=== PATIENT | female | born 1985 | race Caucasian/White ===

== ENCOUNTER → 2017-08-14 | Outpatient (REF) | payer MEDICARE, MEDICAID ==
[~2017-08-14] MED LIST: CELE20TA OR; CIPR500T4 OR; No Historical Meds; TRAZ50TA OR
== END ==
LOC: M SFHCWAGY 12:57
PROVIDERS: ATTEND Nurse Practitioner Women's Health
DX: Z11.3 Encounter for screening for infections with a predominantly sexual mode of transmission (principal); N76.0 Acute vaginitis; B96.89 Other specified bacterial agents as the cause of diseases classified elsewhere; Z72.51 High risk heterosexual behavior
CPT/HCPCS: 81002; 87210; 87491; 87591; G0463

== ENCOUNTER 2017-12-24 08:58 | Emergency (ER) | payer MEDICARE, MEDICAID ==
[2017-12-24 10:51] LABS: BASO % 0.4 % (0.0-1.0); EOS % 0.8 % (0.0-3.0); HEMATOCRIT 41.2 % (36.0-47.0); HEMOGLOBIN 13.9 g/dl (12.0-15.5); IMMATURE GRANULOCYTE % 0.2 % (0-3.0); LYMPH # 1.6 10^3/uL (1.5-4.5); LYMPH % 30.4 % (24.0-44.0); MEAN CORPUSCULAR HEMOGLOBIN 28.8 pg (27.0-33.0); MEAN CORPUSCULAR HGB CONC 33.7 g/dl (32.0-36.5); MEAN CORPUSCULAR VOLUME 85.3 fl (80.0-96.0); MONO # 0.4 10^3/uL (0.0-0.8); MONO % 7.3 % (0.0-5.0); NEUTROPHILS # 3.2 10^3/uL (1.8-7.7); NEUTROPHILS % 60.9 % (36.0-66.0); PLATELET COUNT, AUTOMATED 228 10^3/uL (150-450); RED BLOOD COUNT 4.83 10^6/uL (4.00-5.40); RED CELL DISTRIBUTION WIDTH 11.7 % (11.5-14.5); WHITE BLOOD COUNT 5.2 10^3/uL (4.0-10.0)
[2017-12-24] MEDS: IBUPROFEN 600 MG TAB PO (11:09)
[2017-12-24] MEDS: ACETAMINOPHEN TAB 650MG DOSE (2X325MG) PO (11:10)
[2017-12-24 11:12] LABS: ERYTHROCYTE SEDIMENTATION RATE 7 mm/hr (0-20)
[2017-12-24 11:25] LABS: ANION GAP 5 MEQ/L (8-16); BLOOD UREA NITROGEN 9 MG/DL (7-18); CALCIUM LEVEL 8.4 MG/DL (8.5-10.1); CARBON DIOXIDE LEVEL 27 MEQ/L (21-32); CHLORIDE LEVEL 109 MEQ/L (98-107); CREATININE FOR GFR 0.74 MG/DL (0.55-1.30); FREE THYROXINE INDEX 3.7 % (1.3-4.8); GLOMERULAR FILTRATION RATE > 60.0 (>60); GLUCOSE, FASTING 97 MG/DL (70-100); POTASSIUM SERUM 3.9 MEQ/L (3.5-5.1); SODIUM LEVEL 141 MEQ/L (136-145); T UPTAKE 33 % (30-39); THYROXINE (T4) 11.1 UG/DL (4.5-12.0)
== END 2017-12-24 11:49 | disposition home or self-care (01) ==
LOC: M ED 08:58
DX: R51 Headache (principal); R53.83 Other fatigue; Z88.0 Allergy status to penicillin
CPT/HCPCS: 84443

== ENCOUNTER → 2018-03-28 | Outpatient (REF) | payer MEDICARE, MEDICAID ==
[2018-03-28 20:06] LABS: CHLAMYDIA DNA AMPLIFICATION NEGATIVE (NEGATIVE); GC DNA AMPLIFICATION NEGATIVE (NEGATIVE)
[2018-03-29 15:09] LABS: HIV 1&2 SCREEN CENTAUR NEGATIVE (NEGATIVE)
[2018-03-30 15:28] LABS: HPV HYBRID CAPTURE II Negative (Negative)
== END ==
LOC: M SFHCWAGY 13:51
DX: Z01.419 Encounter for gynecological examination (general) (routine) without abnormal findings (principal); Z11.4 Encounter for screening for human immunodeficiency virus [HIV]; Z11.3 Encounter for screening for infections with a predominantly sexual mode of transmission; R39.15 Urgency of urination; Z11.51 Encounter for screening for human papillomavirus (HPV); R31.9 Hematuria, unspecified; N89.8 Other specified noninflammatory disorders of vagina
CPT/HCPCS: 87086

== ENCOUNTER → 2018-04-02 | Outpatient (REF) | payer MEDICARE, MEDICAID ==
[2018-04-02 11:32] LABS: APPEARANCE, URINE HAZY (CLEAR); BACTERIA, URINE AUTO NEGATIVE (NEGATIVE); BILIRUBIN, URINE AUTO NEGATIVE (NEGATIVE); BLOOD, URINE BLOOD 2+ (NEGATIVE); COLOR, URINE YELLOW (YELLOW); GLUCOSE, URINE (UA) AUTO NEGATIVE (NEGATIVE); KETONE, URINE AUTO NEGATIVE (NEGATIVE); LEUKOCYTE ESTERASE, URINE AUTO NEGATIVE (NEGATIVE); MUCUS, URINE SMALL (NEGATIVE); NITRITE, URINE AUTO NEGATIVE (NEGATIVE); PROTEIN, URINE AUTO NEGATIVE (NEGATIVE); RBC, URINE AUTO 1 /HPF (0-3); SPECIFIC GRAVITY URINE AUTO 1.023 (1.002-1.035); SQUAMOUS EPITHELIAL CELL UR AU 3 /HPF (0-6); UROBILINOGEN, URINE AUTO 0.2 mg/dL (0.0-2.0); WBC, URINE AUTO 1 /HPF (0-3)
== END ==
LOC: M SMT 10:59
DX: R31.29 Other microscopic hematuria (principal)
CPT/HCPCS: 81001

== ENCOUNTER → 2018-08-05 | Outpatient (REF) | payer MEDICARE, MEDICAID ==
[2018-08-05 23:31] LABS: CHLAMYDIA DNA AMPLIFICATION NEGATIVE (NEGATIVE); GC DNA AMPLIFICATION NEGATIVE (NEGATIVE)
[2018-08-07 10:55] LABS: HIV 1&2 SCREEN CENTAUR NEGATIVE (NEGATIVE)
[2018-08-07 10:55] LABS: HEPATITIS C VIRUS ABY INDEX 0.1 INDEX (<0.8)
== END ==
LOC: M SFHCWAGY 14:31
DX: Z11.4 Encounter for screening for human immunodeficiency virus [HIV] (principal); Z11.3 Encounter for screening for infections with a predominantly sexual mode of transmission; Z72.51 High risk heterosexual behavior; N89.8 Other specified noninflammatory disorders of vagina
CPT/HCPCS: 86803

== ENCOUNTER → 2018-08-08 | Outpatient (REF) | payer MEDICARE, MEDICAID ==
[2018-08-08 13:25] LABS: CONTROL LINE UCG INT CTR LINE PRESENT; URINE PREG TEST NEGATIVE (NEGATIVE)
[2018-08-08 16:33] LABS: CHLAMYDIA DNA AMPLIFICATION NEGATIVE (NEGATIVE); GC DNA AMPLIFICATION NEGATIVE (NEGATIVE)
== END ==
LOC: M LAB REF 13:12
DX: N89.8 Other specified noninflammatory disorders of vagina (principal); A74.9 Chlamydial infection, unspecified
CPT/HCPCS: 84703

== ENCOUNTER → 2018-09-06 | Outpatient (REF) | payer MEDICARE, MEDICAID ==
[~2018-09-06] MED LIST changes: +CIPR-249 PO; +DIFL150T PO; +PRENTAB40 PO; +TRAM50TA2 PO; +TYLE500T78 PO; +ZOFR4TAB14 PO
[2018-09-06 14:14] LABS: BASO % 0.4 % (0.0-1.0); EOS % 0.6 % (0.0-3.0); HEMATOCRIT 39.5 % (36.0-47.0); HEMOGLOBIN 13.4 g/dl (12.0-15.5); LYMPH # 1.6 10^3/uL (1.5-4.5); LYMPH % 31.5 % (24.0-44.0); MEAN CORPUSCULAR HEMOGLOBIN 28.7 pg (27.0-33.0); MEAN CORPUSCULAR HGB CONC 33.9 g/dl (32.0-36.5); MEAN CORPUSCULAR VOLUME 84.6 fl (80.0-96.0); MONO # 0.4 10^3/uL (0.0-0.8); MONO % 8.6 % (0.0-5.0); NEUTROPHILS % 58.7 % (36.0-66.0); PLATELET COUNT, AUTOMATED 226 10^3/uL (150-450); RED BLOOD COUNT 4.67 10^6/uL (4.00-5.40); WHITE BLOOD COUNT 5.1 10^3/uL (4.0-10.0)
[2018-09-06 14:37] LABS: ALBUMIN 3.7 GM/DL (3.2-5.2); ALT/SGPT 17 U/L (12-78); BILIRUBIN,TOTAL 0.6 MG/DL (0.2-1.0); BLOOD UREA NITROGEN 8 MG/DL (7-18); CALCIUM LEVEL 8.2 MG/DL (8.5-10.1); CARBON DIOXIDE LEVEL 28 MEQ/L (21-32); CHLORIDE LEVEL 105 MEQ/L (98-107); CREATININE FOR GFR 0.77 MG/DL (0.55-1.30); GLOMERULAR FILTRATION RATE > 60.0 (>60); POTASSIUM SERUM 3.8 MEQ/L (3.5-5.1); RHEUMATOID FACTOR QUANT < 10.0 IU/ML (<15.0); SODIUM LEVEL 140 MEQ/L (136-145); TOTAL 25(OH) VITAMIN D 22.6 NG/ML (30.0-100.0); TOTAL PROTEIN 6.9 GM/DL (6.4-8.2)
[2018-09-06 14:43] LABS: ERYTHROCYTE SEDIMENTATION RATE 9 mm/hr (0-20)
[2018-09-06 14:59] LABS: GLUCOSE, FASTING 89 MG/DL (70-100)
[2018-09-07 14:14] LABS: ANTINUCLEAR ANTIBODIES DIRECT Negative (Negative)
== END ==
LOC: M LABNEURO 10:42
PROVIDERS: ATTEND Psychiatry & Neurology Neurology
DX: R51 Headache (principal)

== ENCOUNTER 2018-09-18 20:14 | Emergency (ER) | payer MEDICARE, MEDICAID ==
[~2018-09-18] VITALS: Ht 165.1 cm; Wt 83.6 kg
[~2018-09-18 20:14] MED LIST changes: -CIPR-249 PO; -DIFL150T PO; -TRAM50TA2 PO; -ZOFR4TAB14 PO
[2018-09-18] MEDS ORDERED: KETOROLAC 30 MG/ML VIAL (J1885) IV ONE (21:15)
[2018-09-18] MEDS ORDERED: diphenhydrAMINE INJ 50MG/ML VIAL (J1200) IV ONE (21:15)
[2018-09-18] MEDS ORDERED: NS 1,000 ML IV ONE (21:15)
[2018-09-18] MEDS ORDERED: ONDANSETRON 4MG/2ML VIAL (J2405) IV ONE (21:15)
[2018-09-18 21:34] LABS: BASO % 0.3 % (0.0-1.0); EOS % 0.5 % (0.0-3.0); HEMATOCRIT 36.6 % (36.0-47.0); HEMOGLOBIN 12.5 g/dl (12.0-15.5); LYMPH # 0.6 10^3/uL (1.5-4.5); MEAN CORPUSCULAR HEMOGLOBIN 28.7 pg (27.0-33.0); MEAN CORPUSCULAR HGB CONC 34.2 g/dl (32.0-36.5); MEAN CORPUSCULAR VOLUME 84.1 fl (80.0-96.0); MONO # 0.4 10^3/uL (0.0-0.8); MONO % 10.7 % (0.0-5.0); NEUTROPHILS # 2.7 10^3/uL (1.8-7.7); NEUTROPHILS % 73.5 % (36.0-66.0); PLATELET COUNT, AUTOMATED 164 10^3/uL (150-450); RED BLOOD COUNT 4.35 10^6/uL (4.00-5.40); WHITE BLOOD COUNT 3.7 10^3/uL (4.0-10.0)
[2018-09-18 22:00] LABS: ALBUMIN 3.5 GM/DL (3.2-5.2); ALT/SGPT 15 U/L (12-78); BILIRUBIN,DIRECT 0.1 MG/DL (0.0-0.2); BILIRUBIN,TOTAL 0.6 MG/DL (0.2-1.0); BLOOD UREA NITROGEN 8 MG/DL (7-18); CALCIUM LEVEL 7.7 MG/DL (8.5-10.1); CARBON DIOXIDE LEVEL 26 MEQ/L (21-32); CHLORIDE LEVEL 109 MEQ/L (98-107); CK-MB VALUE MASS < 1.0 NG/ML (<3.6); CPK CREATINE PHOSPHOKINASE 45 U/L (26-192); CREATININE FOR GFR 0.76 MG/DL (0.55-1.30); GLOMERULAR FILTRATION RATE > 60.0 (>60); GLUCOSE, FASTING 104 MG/DL (70-100); LIPASE 108 U/L (73-393); MAGNESIUM LEVEL 1.8 MG/DL (1.8-2.4); MB/CK RELATIVE INDEX 2.22 (< OR =4); POTASSIUM SERUM 3.8 MEQ/L (3.5-5.1); SODIUM LEVEL 142 MEQ/L (136-145); TOTAL PROTEIN 6.4 GM/DL (6.4-8.2); TROPONIN I < 0.02 NG/ML (< 0.10)
[2018-09-18 22:01] LABS: URINE PREG TEST NEGATIVE (NEGATIVE)
[2018-09-18 22:05] LABS: INFLUENZA A AMPLIFICATION NEGATIVE (NEGATIVE); INFLUENZA B AMPLIFICATION NEGATIVE (NEGATIVE)
[2018-09-18] MEDS ORDERED: ISOVUE-370 76% 100ML VIAL (Q9967) As Ordered ONE (22:36)
[2018-09-18] MEDS ORDERED: MORPHINE 4 MG/ML 1ML VIAL/SYRINGE (J2270) IV ONE (22:45)
--- NOTE | 2018-09-19 | REPVR ---
EXAM: CT Abdomen and Pelvis With Contrast EXAM DATE/TIME: 09/18/2018 10:14 PM CLINICAL HISTORY: 33 years old, female; Pain; Abdominal pain; Localized; Lower; Additional info: Lower abd pain TECHNIQUE: Axial computed tomography images of the abdomen and pelvis with intravenous contrast. All CT scans at this facility use at least one of these dose optimization techniques: automated exposure control; mA and/or kV adjustment per patient size (includes targeted exams where dose is matched to clinical indication); or iterative reconstruction. Coronal and sagittal reformatted images were created and reviewed. CONTRAST: 100 ml of iso administered intravenously. COMPARISON: PELVIS NON-OB COMPLETE US 02/13/2013 2:09 PM FINDINGS: Lower thorax: No acute findings. ABDOMEN: Liver: There is a diffuse decrease in hepatic parenchymal density, consistent with fatty infiltration. Gallbladder and bile ducts: Normal. No calcified stones. No ductal dilation. Pancreas: Normal. No ductal dilation. Spleen: Borderline enlarged spleen. Adrenals: Normal. No mass. Kidneys and ureters: Normal. No hydronephrosis. Stomach and bowel: Normal. No obstruction. No mucosal thickening. Appendix: Normal appendix. PELVIS: Bladder: Unremarkable as visualized. Reproductive: Unremarkable as visualized. ABDOMEN and PELVIS: Intraperitoneal space: Free fluid in the cul-de-sac likely physiologic. Other etiologies considering history such as endometriosis or PID should be evaluated clinically. Bones/joints: No acute fracture. No dislocation. Soft tissues: Unremarkable. Vasculature: Normal. No abdominal aortic aneurysm. Lymph nodes: Multiple central mesenteric lymph nodes measure up to 10 mm. Increased haziness of the central mesentery. There are more mesenteric nodes then typically demonstrated in this age group consideration for mesenteric adenitis or panniculitis suggested. IMPRESSION: 1. There is a diffuse decrease in hepatic parenchymal density, consistent with fatty infiltration. 2. Multiple central mesenteric lymph nodes measure up to 10 mm. Increased haziness of the central mesentery. There are more mesenteric nodes then typically demonstrated in this age group consideration for mesenteric adenitis or panniculitis suggested. 3. Free fluid in the cul-de-sac likely physiologic. Considering history other etiologies such as endometriosis or PID should be evaluated clinically. Electronically signed by: Connor Garcia On 09/18/2018 23:59:43 PM
[2018-09-19] MEDS ORDERED: CIPR-249 PO (00:33)
[2018-09-19] MEDS ORDERED: TRAM50TA2 PO (00:33)
[2018-09-19] MEDS ORDERED: DIFL150T PO (00:38)
[2018-09-19] MEDS ORDERED: PERCOCET 5MG/325MG TAB PO ONE (00:45)
[2018-09-19 00:58] VITALS: BP 120/58
[2018-09-19] MEDS ORDERED: ZOFR4TAB14 PO (00:58)
[2018-09-19] MEDS ORDERED: CIPROFLOXACIN 500 MG TAB PO ONE (01:00)
--- NOTE | 2018-09-19 13:11 | ECGEPIP ---
Stationary ECG Study [facility] - ED Test Date: 2018-09-18 Pat Name: MANDI MENDOSA Department: Room: - Gender: F Vein Access Technician: tien : 1985 Requested By: CÉSAR BARROW Order Number: [id number] Reading MD: Mayank Ferreira Measurements Intervals [place] Rate: 95 P: 39 MT: 158 QRS: 67 QRSD: 81 T: 54 QT: 347 QTc: 438 Interpretive Statements SINUS RHYTHM BENIGN EARLY REPOLARIZATION SIMILAR TO 05/03/13 Electronically Signed On 09-19-2018 13:10:43 EST by Mayank Ferreira
== END 2018-09-19 01:02 | disposition home or self-care (01) ==
LOC: M ED 20:14
DX: I88.0 Nonspecific mesenteric lymphadenitis (principal); N39.0 Urinary tract infection, site not specified; R01.1 Cardiac murmur, unspecified; Z82.49 Family history of ischemic heart disease and other diseases of the circulatory system; Z88.0 Allergy status to penicillin
CPT/HCPCS: 74177; 80048; 80076; 81001; 82550; 82553; 83690; 83735; 84484; 84703; 85025; 87086; 87502; 93005; 96361; 96374; 96375; 99284; J1200; J1885; J2270; J2405; Q9967

== ENCOUNTER → 2018-10-22 | Outpatient (REF) | payer MEDICARE, MEDICAID ==
[~2018-10-22] MED LIST changes: +CIPR-249 PO; +DIFL150T PO; +TRAM50TA2 PO; +ZOFR4TAB14 PO
[2018-10-22 18:02] LABS: AMORPHOUS SEDIMENT LARGE (NEGATIVE); APPEARANCE, URINE TURBID (CLEAR); BACTERIA, URINE AUTO NEGATIVE (NEGATIVE); BILIRUBIN, URINE AUTO NEGATIVE (NEGATIVE); BLOOD, URINE BLOOD 2+ (NEGATIVE); COLOR, URINE YELLOW (YELLOW); GLUCOSE, URINE (UA) AUTO NEGATIVE (NEGATIVE); KETONE, URINE AUTO NEGATIVE (NEGATIVE); LEUKOCYTE ESTERASE, URINE AUTO NEGATIVE (NEGATIVE); NITRITE, URINE AUTO NEGATIVE (NEGATIVE); PROTEIN, URINE AUTO NEGATIVE (NEGATIVE); RBC, URINE AUTO 6 /HPF (0-3); SPECIFIC GRAVITY URINE AUTO 1.028 (1.002-1.035); SQUAMOUS EPITHELIAL CELL UR AU 0 /HPF (0-6); UROBILINOGEN, URINE AUTO 0.2 mg/dL (0.0-2.0); WBC, URINE AUTO 5 /HPF (0-3)
[2018-10-22 18:37] LABS: ALBUMIN 3.9 GM/DL (3.2-5.2); ALT/SGPT 19 U/L (12-78); BILIRUBIN,TOTAL 0.5 MG/DL (0.2-1.0); BLOOD UREA NITROGEN 10 MG/DL (7-18); CALCIUM LEVEL 8.4 MG/DL (8.5-10.1); CARBON DIOXIDE LEVEL 25 MEQ/L (21-32); CHLORIDE LEVEL 106 MEQ/L (98-107); CREATININE FOR GFR 0.73 MG/DL (0.55-1.30); GLOMERULAR FILTRATION RATE > 60.0 (>60); GLUCOSE, FASTING 93 MG/DL (70-100); POTASSIUM SERUM 4.1 MEQ/L (3.5-5.1); SODIUM LEVEL 138 MEQ/L (136-145); TOTAL PROTEIN 6.9 GM/DL (6.4-8.2)
[2018-10-22 18:39] LABS: TOTAL 25(OH) VITAMIN D 9.4 NG/ML (30.0-100.0)
[2018-10-22 18:42] LABS: BASO % 0.6 % (0.0-1.0); EOS # 0.1 10^3/uL (0.0-0.50); HEMOGLOBIN 13.1 g/dl (12.0-15.5); LYMPH # 1.7 10^3/uL (1.5-4.5); LYMPH % 34.9 % (24.0-44.0); MEAN CORPUSCULAR HEMOGLOBIN 28.4 pg (27.0-33.0); MEAN CORPUSCULAR HGB CONC 33.6 g/dl (32.0-36.5); MEAN CORPUSCULAR VOLUME 84.6 fl (80.0-96.0); MONO # 0.4 10^3/uL (0.0-0.8); MONO % 7.1 % (0.0-5.0); NEUTROPHILS # 2.8 10^3/uL (1.8-7.7); NEUTROPHILS % 56.2 % (36.0-66.0); PLATELET COUNT, AUTOMATED 252 10^3/uL (150-450); RED BLOOD COUNT 4.61 10^6/uL (4.00-5.40)
== END ==
LOC: M LAB REF 16:34
PROVIDERS: ATTEND Family Medicine Addiction Medicine
DX: E55.9 Vitamin D deficiency, unspecified (principal); E83.51 Hypocalcemia; R00.2 Palpitations; F41.1 Generalized anxiety disorder

== ENCOUNTER → 2018-10-25 | Outpatient (REF) | payer MEDICARE, MEDICAID ==
[2018-10-25 13:18] LABS: APPEARANCE, URINE CLEAR (CLEAR); BACTERIA, URINE AUTO NEGATIVE (NEGATIVE); BILIRUBIN, URINE AUTO NEGATIVE (NEGATIVE); BLOOD, URINE BLOOD 1+ (NEGATIVE); COLOR, URINE YELLOW (YELLOW); GLUCOSE, URINE (UA) AUTO NEGATIVE (NEGATIVE); KETONE, URINE AUTO NEGATIVE (NEGATIVE); LEUKOCYTE ESTERASE, URINE AUTO NEGATIVE (NEGATIVE); MUCUS, URINE SMALL (NEGATIVE); NITRITE, URINE AUTO NEGATIVE (NEGATIVE); PROTEIN, URINE AUTO NEGATIVE (NEGATIVE); RBC, URINE AUTO 2 /HPF (0-3); SPECIFIC GRAVITY URINE AUTO 1.019 (1.002-1.035); SQUAMOUS EPITHELIAL CELL UR AU 2 /HPF (0-6); UROBILINOGEN, URINE AUTO 0.2 mg/dL (0.0-2.0); WBC, URINE AUTO 1 /HPF (0-3)
== END ==
LOC: M SMT 13:06
PROVIDERS: ATTEND Nurse Practitioner Women's Health
DX: R31.29 Other microscopic hematuria (principal)
CPT/HCPCS: 81001; 87086; 88108; G0463

== ENCOUNTER → 2018-10-29 | Outpatient (REF) | payer MEDICARE, MEDICAID ==
[2018-10-30 04:44] LABS: CHLAMYDIA DNA AMPLIFICATION NEGATIVE (NEGATIVE); GC DNA AMPLIFICATION NEGATIVE (NEGATIVE)
== END ==
LOC: M SFHCWAGY 17:37
PROVIDERS: ATTEND Nurse Practitioner Family
DX: Z11.3 Encounter for screening for infections with a predominantly sexual mode of transmission (principal); R10.2 Pelvic and perineal pain; N89.8 Other specified noninflammatory disorders of vagina
CPT/HCPCS: 87210; 87491; 87591; G0463

== ENCOUNTER → 2018-11-06 | Outpatient (REF) | payer MEDICARE, MEDICAID | LOC: M LAB REF 16:17 | PROVIDERS: ATTEND Physician Assistant | DX: J02.9 Acute pharyngitis, unspecified (principal) ==

== ENCOUNTER → 2018-11-26 | Outpatient (CLI) | payer MEDICARE, MEDICAID ==
--- NOTE | 2018-11-26 13:41 | REP ---
PELVIC SONOGRAPHY: HISTORY: Pelvic pain. FINDINGS: Transabdominal and transvaginal scanning are performed. Uterine dimensions are 8.6 x 4.7 x 6.4 cm. Endometrial echo is 0.9 cm thick. No focal uterine mass is seen. Nabothian cysts are seen in the cervix. No free fluid is seen. The right ovary is normal measuring 3.4 x 2.0 x 3.4 cm. Its Doppler flow is normal with resistive index to the right ovary is 0.40. The left ovary measures 3.2 x 2.7 x 3.1 cm. Its Doppler flow is normal, resistive index 0.38. There is a 1.7 x 1.8 x 1.3 cm left ovarian follicle. IMPRESSION: No significant finding.
== END ==
LOC: M WHC 11:16
PROVIDERS: ATTEND Nurse Practitioner Family
DX: R10.2 Pelvic and perineal pain (principal)

== ENCOUNTER → 2018-11-29 | Outpatient (CLI) | payer MEDICARE, MEDICAID ==
[2018-11-29 13:09] LABS: HEMATOCRIT 39.4 % (36.0-47.0); HEMOGLOBIN 13.3 g/dl (12.0-15.5); MEAN CORPUSCULAR HEMOGLOBIN 28.9 pg (27.0-33.0); MEAN CORPUSCULAR HGB CONC 33.8 g/dl (32.0-36.5); MEAN CORPUSCULAR VOLUME 85.7 fl (80.0-96.0); PLATELET COUNT, AUTOMATED 211 10^3/uL (150-450); WHITE BLOOD COUNT 5.1 10^3/uL (4.0-10.0)
[2018-11-29 14:12] LABS: BLOOD UREA NITROGEN 8 MG/DL (7-18); CALCIUM LEVEL 8.4 MG/DL (8.5-10.1); CARBON DIOXIDE LEVEL 25 MEQ/L (21-32); CHLORIDE LEVEL 107 MEQ/L (98-107); CHOLESTEROL LEVEL 184 MG/DL (<200); CHOLESTEROL RISK RATIO 4.279 (<5); CREATININE FOR GFR 0.72 MG/DL (0.55-1.30); GLOMERULAR FILTRATION RATE > 60.0 (>60); GLUCOSE, FASTING 101 MG/DL (70-100); HDL CHOLESTEROL 43 MG/DL (>40); LDL CHOLESTEROL 121 MG/DL (<100); NON-HDL-C 141 MG/DL; POTASSIUM SERUM 4.4 MEQ/L (3.5-5.1); SODIUM LEVEL 140 MEQ/L (136-145); TRIGLYCERIDES LEVEL 102 MG/DL (<150)
== END ==
LOC: M WUC 08:24
PROVIDERS: ATTEND Internal Medicine Cardiovascular Disease
DX: R07.89 Other chest pain (principal)

== ENCOUNTER 2019-01-08 10:00 | Emergency (ER) | payer MEDICARE, MEDICAID ==
[~2019-01-08] VITALS: Ht 165.1 cm; Wt 79.5 kg
[2019-01-08] MEDS ORDERED: ONDANSETRON 4MG/2ML VIAL (J2405) IV ONE (11:00)
[2019-01-08] MEDS ORDERED: NS 1,000 ML IV ONE (11:00)
[2019-01-08] MEDS ORDERED: KETOROLAC 30 MG/ML VIAL (J1885) IV ONE (11:00)
[2019-01-08] MEDS ORDERED: GASTROGRAFIN SOLUTION 30ML (Q9963) As Ordered ONE (11:06)
[2019-01-08 11:18] LABS: BASO % 0.2 % (0.0-1.0); EOS % 0.2 % (0.0-3.0); HEMATOCRIT 44.6 % (36.0-47.0); HEMOGLOBIN 14.9 g/dl (12.0-15.5); LYMPH # 0.5 10^3/uL (1.5-4.5); LYMPH % 5.6 % (24.0-44.0); MEAN CORPUSCULAR HEMOGLOBIN 28.5 pg (27.0-33.0); MEAN CORPUSCULAR HGB CONC 33.4 g/dl (32.0-36.5); MEAN CORPUSCULAR VOLUME 85.4 fl (80.0-96.0); MONO # 0.6 10^3/uL (0.0-0.8); MONO % 6.5 % (0.0-5.0); NEUTROPHILS # 8.2 10^3/uL (1.8-7.7); NEUTROPHILS % 87.1 % (36.0-66.0); PLATELET COUNT, AUTOMATED 192 10^3/uL (150-450); RED BLOOD COUNT 5.22 10^6/uL (4.00-5.40); WHITE BLOOD COUNT 9.5 10^3/uL (4.0-10.0)
[2019-01-08] MEDS: GASTROGRAFIN SOLUTION 30ML PO SCH ×2 (11:20→11:49)
[2019-01-08 11:50] LABS: ALBUMIN 4.2 GM/DL (3.2-5.2); ALT/SGPT 20 U/L (12-78); BILIRUBIN,TOTAL 0.7 MG/DL (0.2-1.0); BLOOD UREA NITROGEN 13 MG/DL (7-18); CALCIUM LEVEL 8.4 MG/DL (8.5-10.1); CARBON DIOXIDE LEVEL 25 MEQ/L (21-32); CHLORIDE LEVEL 107 MEQ/L (98-107); CREATININE FOR GFR 0.79 MG/DL (0.55-1.30); GLOMERULAR FILTRATION RATE > 60.0 (>60); GLUCOSE, FASTING 104 MG/DL (70-100); HCG, SERUM QUANTITATIVE < 1.0 MIU/ML; LIPASE 116 U/L (73-393); POTASSIUM SERUM 3.7 MEQ/L (3.5-5.1); SODIUM LEVEL 137 MEQ/L (136-145); TOTAL PROTEIN 7.7 GM/DL (6.4-8.2)
[2019-01-08] MEDS ORDERED: ISOVUE-370 76% 100ML VIAL (Q9967) As Ordered ONE (12:26)
[2019-01-08] MEDS ORDERED: GI COCKTAIL 50ML BTL(HYOSCYAMINE/MAALOX/LIDOCAINE VISCOUS)(1:3:1) PO ONE (13:00)
[2019-01-08] MEDS ORDERED: DICYCLOMINE 10 MG CAP PO ONE (13:15)
--- NOTE | 2019-01-08 13:16 | REP ---
CT of the abdomen and pelvis with IV and oral contrast: Comparison is 09/18/2018. The visualized lung lei are unremarkable. The hepatic parenchyma, gallbladder, pancreas, spleen, adrenals, kidneys and abdominal aorta are unremarkable. There are normal size mesenteric nodes, not significantly changed. The mesenteric central haziness identified previously is no longer present. There is no bowel distension or obstruction. There is wall thickening of the distal transverse colon, descending colon and sigmoid colon as an interval change. This is compatible with colitis in the appropriate clinical setting. Pelvis: The appendix is unremarkable. The uterus and adnexa are unremarkable except for an involuting left ovarian follicle. There is a trace of ascites. The bladder is unremarkable. Impression: Wall thickening of the distal transverse colon, descending colon and sigmoid colon compatible with colitis in the appropriate clinical setting. Involuting left adnexal follicle. Otherwise, negative CT of the abdomen and pelvis. Electronically Signed by Musa Styles MD 01/08/2019 01:07 P
[2019-01-08] MEDS ORDERED: REGL10TA6 PO (13:23)
[2019-01-08] MEDS ORDERED: FLAG500T PO (13:23)
[2019-01-08] MEDS ORDERED: CIPR-249 PO (13:23)
[2019-01-08 13:33] VITALS: BP 103/58
[2019-01-08] MEDS ORDERED: KETO10TAB PO (13:34)
== END 2019-01-08 13:41 | disposition home or self-care (01) ==
LOC: M ED 10:00
DX: K52.9 Noninfective gastroenteritis and colitis, unspecified (principal); N83.02 Follicular cyst of left ovary; R10.30 Lower abdominal pain, unspecified; Z87.891 Personal history of nicotine dependence; Z88.0 Allergy status to penicillin
CPT/HCPCS: 36415; 74177; 80053; 81001; 83690; 84702; 85025; 96361; 96374; 96375; 99284; J1885; J2405; Q9967

== ENCOUNTER → 2019-03-04 | Outpatient (REF) | payer MEDICARE, MEDICAID ==
[~2019-03-04] MED LIST changes: +FLAG500T PO; +KETO10TAB PO; +REGL10TA6 PO
[2019-03-04 15:13] LABS: CHLAMYDIA DNA AMPLIFICATION NEGATIVE (NEGATIVE); GC DNA AMPLIFICATION NEGATIVE (NEGATIVE)
== END ==
LOC: M SFHCWAGY 13:05
PROVIDERS: ATTEND Nurse Practitioner Women's Health
DX: N93.0 Postcoital and contact bleeding (principal); R35.0 Frequency of micturition; N89.8 Other specified noninflammatory disorders of vagina
CPT/HCPCS: 81002; 87661; G0463

== ENCOUNTER → 2019-04-11 | Outpatient (CLI) | payer MEDICARE, MEDICAID ==
--- NOTE | 2019-04-22 01:36 | ECWPNPC ---
PATIENT NAME: MANDI MENDOSA : 1985 GENDER: FEMALE VISIT DATE: 04/11/2019 DISCHARGE DATE: 04/11/19 1614 VISIT LOCKED DATE TIME: PHYSICIAN: HARSHAL KHAN MD RESOURCE: HARSHAL KHAN MD REASON FOR APPOINTMENT 1. NECK PAIN REFER FROM [facility] HISTORY OF PRESENT ILLNESS PAIN SCREENING: PATIENT HAS A COMPLAINT OF ACUTE OR CHRONIC PAIN :YES 33 YEAR OLD FEMALE PATIENT WITH A HISTORY OF CHRONIC NECK PAIN. THE PATIENT DESCRIBES THE PAIN ACHING, SHARP, AND DAILY WITH A PAIN SCORE OF 7-10/10 DEPENDING ON PHYSICAL ACTIVITY. THE PATIENT STATES THE PAIN BEGINS IN HER NECK AND RADIATES UP TOWARDS HER HEAD. THE PATIENT SAYS SHE HAS BEEN SUFFERING FROM THIS PAIN FOR MANY YEARS. THE PATIENT ALSO HAS LOW BACK PAIN, BUT SAYS THE NECK PAIN IS WORSE. THE PATIENT MENTIONS SHE ALSO EXPERIENCES PAIN RADIATING DOWN HER ARM DUE TO HEART ISSUES AND SHE IS BEING SEEN BY A UPHOLSTERER HELPER. THE PATIENT SAYS SHE HAS USED TORADOL IN THE PAST TO AID IN PAIN RELIEF, HOWEVER SHE DEVELOPED STOMACH ISSUES DUE TO LONG-TERM USAGE AND HAD TO STOP TAKING THEM. PATIENT DENIES UNEXPLAINABLE WEIGHT LOSS, FEVER, CHILLS, NEW CHANGES ON HER URINARY OR BOWEL CONTROL. FALL RISK SCREENING: SCREENING :NO FALLS REPORTED IN THE LAST YEAR CURRENT MEDICATIONS TAKING TYLENOL 325 MG TABLET 1 TABLET NEEDED ORALLY EVERY 4 HRS NOT-TAKING HYDROXYZINE HCL 25 MG TABLET 1 TABLET NEEDED ORALLY EVERY 8 HRS NOT-TAKING VITAMIN D 1000 UNIT TABLET 1 TABLET ORALLY TWICE DAILY NOT-TAKING CLOMID 50 MG TABLET 1 TABLET ORALLY ONCE A DAY (DAY3-7) MEDICATION LIST REVIEWED AND RECONCILED WITH THE PATIENT PAST MEDICAL HISTORY MENORRHAGIA FOLLOWING [facility] HISTORY OF ALCOHOL ABUSE TOP (OCT 2010) POOR HISTORIAN MOLLUSCUM CONTAGIOSUM IRREG MENSES AFTER STOPPING DEPO 04/04-08/05 ANXIETY HX FREQ BV AND CANDIDIASIS VUL/VAG HIGH RISK SEXUAL BEHAVIOR CHRONIC NECK PAIN ALLERGIES AMOXICILLIN: HIVES - ALLERGY BACTRIM DS: VULVAR PRURITIS - SIDE EFFECTS SURGICAL HISTORY D&C FOR TOP 11/2010 FAMILY HISTORY FATHER: 46 YRS, SUICIDE BY HANGING MOTHER: ALIVE 48 YRS, CERVICAL CANCER, VON WILLEBRAND SIBLINGS: ALIVE, THREE SISTERS: 20, 22, 26, ALL NO KNOWN MEDICAL PROBLEMS. ONE BROTHER: 16, FEEDING TUBE A . ANOTHER BROTHER, TERESITA CHAMBERS SON(S): ALIVE 8,3 YRS PATERNAL GRAND FATHER: , UNKNOWN, DIAGNOSED WITH CANCER PATERNAL GRAND MOTHER: , CANCER MATERNAL GRAND FATHER: ALIVE 68 YRS, DIABETES MELLITUS MATERNAL GRAND MOTHER: ALIVE 67 YRS, DIABETES MELLITUS 1 BROTHER(S) , 3 SISTER(S) . 3 SON(S) , 1 DAUGHTER(S) - HEALTHY. DENIES BREAST, COLON OR OVARIAN CANCERS. SOCIAL HISTORY GENERAL: TOBACCO USE ARE YOU A:FORMER SMOKER HOW LONG HAS IT BEEN SINCE YOU LAST SMOKED?1-5 YEARS QUITE 2 1/2 YRS AGO HIV / HEP-C SCREENING HIV TEST OFFERED TO PATIENT:YES DATE OFFERED:08/05/2018 TEST ACCEPTED:YES BROCHURE PROVIDED TO PATIENTYES OTHERS AT HOME: CHILDREN.FIANCE. HOUSING: RENTS APARTMENT. EDUCATION HIGH SCHOOL DEGREE. DIET: REGULAR. LANGUAGE CONGOLESE. DOMESTIC VIOLENCE DENIES SEXUAL, PHYSICAL OR EMOTIONAL ABUSE, 01/26/14 HITS=N/A, NO PARTNER BUT FORM WAS NOT COMPLETED BY PT. BMI CARE GOAL FOLLOW-UP ABOVE NORMAL BMI FOLLOW-UPDIETARY NEEDS EDUCATION, GIVING ENCOURAGEMENT TO EXERCISE, WEIGHT MONITORING RECREATIONAL DRUG USE DENIES. EXERCISE: NO REGULAR EXERCISE. LEARNING BARRIERS / SPECIAL NEEDS CHANGE FROM LAST VISIT?NO BARRIERS TO LEARNING?NO HEARING IMPAIRED?NO VISION IMPAIRED?NO COGNITIVELY IMPAIRED?NO READINESS TO LEARN?YES LEARNING PREFERENCES?NO LEARNING CAPABILITIES PRESENT?YES EMOTIONAL BARRIERS?NO SPECIAL DEVICES?NO ANATOMY TEACHER NEEDED?NO PAIN CLINIC PFS, CLERGY, PUBLIC HEALTH REFERRALS HAS THE PATIENT BEEN EDUCATED REGARDING HIS/HER PLAN OF CARE?YES HAS THE PATIENT BEEN EDUCATED REGARDING PAIN, THE RISK FOR PAIN, THE IMPORTANCE OF EFFECTIVE PAIN MANAGEMENT, AND THE PAIN ASSESSMENT PROCESS?YES LATEX QUESTIONNAIRE LATEX ALLERGY : HAVE YOU EVER DEVELOPED ANY TYPE OF REACTION AFTER HANDLING LATEX PRODUCTS SUCH RUBBER GLOVES, CONDOMS, DIAPHRAGMS, BALLOONS, SOCKS, OR UNDERWEAR?NO LATEX ALLERGY : HAVE YOU EVER DEVELOPED ANY TYPE OF REACTION DURING OR AFTER DENTAL APPOINTMENT, VAGINAL/RECTAL EXAMINATION, SURGICAL PROCEDURE, OR ANY OTHER EXPOSURE?NO LATEX RISK : HAVE YOU EVER HAD ANY DIFFICULTY BREATHING OR HIVES AFTER EATING OR HANDLING ANY FRUITS, OR VEGETABLES; SUCH KIWI, BANANAS, STONE FRUITS, OR CHESTNUTSNO LATEX RISK : DO YOU HAVE A PREVIOUS PERSONAL HISTORY OF MORE THAN NINE SURGERIES, SPINA BIFIDA, OR REPEATED CATHERIZATIONS? NO LATEX RISK : ARE YOU FREQUENTLY EXPOSED TO LATEX PRODUCTS IN YOUR OCCUPATION?NO DATE ASKED : 03/04/2019 CAFFEINE CAFFEINE USE?YES HOW OFTEN AND HOW MUCH? SODA DAILY - DECAF COFFEE ADVANCE DIRECTIVE ADVANCE DIRECTIVE DISCUSSED WITH PATIENT:YES PT DOES NOT HAVE HCP AND DECLINES INFO AT THIS TIME. 04/11/19 BV RESTORATIONISM DENOMINATIONAL. MARITAL STATUS: SINGLE. OCCUPATION: UNEMPLOYED. SEXUAL HX HAD SEX IN THE LAST 12 MONTHS (VAGINAL, ORAL, OR ANAL)?YES WITHMEN ONLY HAVE YOU EVER HAD AN STD?NO LMP:07/13/18 USE PROTECTION?NO PREVENTION STRATEGIES DISCUSSED:CONDOMS REVIEWED WITH PT 04/11/19 1439 BV. HOSPITALIZATION/MAJOR DIAGNOSTIC PROCEDURE NO HOSPITALIZATION HISTORY. REVIEW OF SYSTEMS REVIEWED BY: PROVIDER: HARSHAL KHAN MD . CONSTITUTIONAL: ANY CHANGE IN YOUR MEDICAL CONDITION? NO . CHILLS NO . FEVER NO . INFECTION: DO YOU HAVE NEW INFECTIONS? NO . DO YOU HAVE HISTORY OF MRSA? NO . MUSCULOSKELETAL: ANY NEW PATTERNS OF PAIN OR NUMBNESS? NO . SYTEMIC LUPUS NO . GASTROENTEROLOGY: ANY NEW CHANGE IN BOWEL CONTROL? NO . BARRETTS ESOPHAGUS NO . CIRRHOSIS NO . HEPATITIS NO . LIVER FAILURE NO . ACID REFLUX NO . UNEXPLAINED WEIGHT LOSS NO . GENITOURINARY: ANY NEW CHANGE IN BLADDER CONTROL? NO . IS THERE A CHANCE YOU COULD BE ? NO . HEMATOLOGY/LYMPH: DO YOU TAKE ANY BLOOD THINNERS? (FOR EXAMPLE- COUMADIN, PLAVIX, AGGRENOX, PLATEL, PRADAXA, OR XARELTO) NO . WHEN WAS YOUR LAST DOSE? DATE: TIME: . LOW PLATELET COUNT NO . SICKLE CELL DISEASE NO . VON WILLIEBRANDS NO . FACTOR V LEIDEN NO . THALLASEMIA NO . ANEMIA NO . EASY BRUISING NO . NEUROLOGY: HAVE YOU FALLEN IN THE PAST 12 MONTHS? NO . ANY NEW EXTREMITY NUMBNESS OR WEAKNESS? YES, PT REPORTS TINGLING DOWN RIGHT ARM THAT STARTED ABOUT A WEEK AGO. . HEAD INJURY NO . DEMENTIA NO . CEREBRAL PALSY NO . MULTIPLE SCLEROSIS NO . DIZZINESS NO . HEADACHE PT STATES SHE GETS FREQUENT HEADACHES >3 WEEK. USUALLY PROGRESS TO MIGRAINES. TREATS WITH TYLENOL WITH LITTLE RELIEF . STROKES NO . VERTIGO NO . CARDIOLOGY: DO YOU HAVE A PACEMAKER OR DEFIBRILLATOR? NO . ANGINA NO . HEART ATTACK NO . HEART SURGERY NO . CONGESTIVE HEART FAILURE/FLUID OVERLOAD NO . CHEST PAIN FOLLOWS WITH CARDIOLOGY REGARDING INTERMITTENT CHEST PAIN . HIGH BLOOD PRESSURE NO . IRREGULAR HEART BEAT DIAGNOSED WITH HEART MURMUR CHILD . RESPIRATORY: HAVE YOU BEEN SICK IN THE PAST WEEK? NO . FEVER NO . FLU LIKE SYMPTOMS? NO . CPAP NO . BYPAP NO . ASTHMA YES, CHILDHOOD ASTHMA . EMPHYSEMA NO . CHRONIC LUNG DISEASES NO . SHORTNESS OF BREATH ON EXERTION NO . COUGH NO . SNORING NO . INTEGUMENTARY: DO YOU HAVE ANY RASHES OR OPEN SORES? NO . ALLERGIC/IMMUNO: ARE YOU ALLERGIC TO IV DYE? NO . ANY NEW ALLERGIES? NO . PSYCHIATRIC: DO YOU HAVE THOUGHTS OF HURTING YOURSELF OR SOMEONE ELSE? NO . ARE YOU ABUSED, NEGLECTED, OR IN AN UNSAFE ENVIRONMENT? NO . ENDOCRINOLOGY: ARE YOU DIABETIC? NO . THYROID DISORDER NO . OTHER: DO YOU NEED ANY PRESCRIPTIONS? NO . IF YES, PLEASE LIST: ____ . ANY NEW PROBLEMS WITH YOUR MEDICATIONS? NO . WHEN DID YOU LAST EAT? ____ . WHEN DID YOU LAST DRINK? ____ . WHAT DID YOU LAST DRINK? ____ . NAME OF PERSON DRIVING YOU HOME? ____ . DO YOU HAVE ANY OTHER QUESTIONS OR CONCERNS NO . VITAL SIGNS WT 179 LBS, HT 65 IN, BMI 29.78 INDEX, BP 115/54 MM HG, HR 85 /MIN, RR 18 /MIN, TEMP 98.3 F, OXYGEN SAT % 99%, NA INITIALS SC 14:12, REVIEWED BY: BV. EXAMINATION GENERAL EXAMINATION: PATIENT IS ALERT O X 3 AND COOPERATIVE. LUNGS CLEAR, TO AUSCULTATION. HEART: NO MURMURS OR GALLOPS; FACIAL CRANIAL NERVES ARE GROSSLY NORMAL. GOOD SYMMETRY OF FACIAL MUSCLE MOVEMENT. NORMAL VISUAL ROWELL. TENDERNESS IN THE CERVICAL AREA. PAIN INCREASES OVER THE CERVICAL FACET JOINTS WITH EXTENSION AND LATERAL ROTATION OF THE NECK. MRI OF THE CERVICAL SPINE DONE ON 12/03/2017 SHOWS FACET ARTHROPATHY CHANGES AT C3-C4 AND C5-C6 LEVELS. ASSESSMENTS SPONDYLOSIS OF CERVICAL REGION WITHOUT MYELOPATHY OR RADICULOPATHY - M47.812 (PRIMARY) NECK PAIN - M54.2 MYALGIA, OTHER SITE - M79.18 TREATMENT SPONDYLOSIS OF CERVICAL REGION WITHOUT MYELOPATHY OR RADICULOPATHY CLINICAL NOTES: WE DISCUSSED SEVERAL ISSUES WITH MS. MENDOSA'S PAIN MANAGEMENT CASE. I DISCUSSED SEVERAL INJECTION THERAPY OPTIONS, SUCH NECK TRIGGER POINT INJECTIONS AND CERVICAL FACET BLOCKS. HOWEVER, THE PATIENT WOULD PREFER LESS AGGRESSIVE MANAGEMENT FOR NOW. THE PATIENT SAID TORADOL HELPED HER IN THE PAST AND WOULD LIKE TO TRY THIS MEDICATION AGAIN. I EXPLAINED TO THE PATIENT THE RISKS ALTERNATIVES AND BENEFITS ASSOCIATED WITH THE USE OF NSAID'S. THE PATIENT UNDERSTOOD THAT THE USE OF NSAID'S MAY BE ASSOCIATED WITH THE DEVELOPMENT OF GASTRIC IRRITATION AND ULCERS, WITH THE DEVELOPMENT OF KIDNEY PROBLEMS AND WITH THE POSSIBILITY OF DEVELOPING CARDIAC EVENTS SUCH STOKE OR CARDIAC DISEASES. THE PATIENT AGREES ON USING THE PRESCRIBED NSAID. THE PATIENT WILL START ON TORADOL 10 MG, 5 TABLETS FOR THE MONTH NEEDED TO HELP WITH HER PAIN. THE PATIENT IS AWARE THAT WE WILL NOT PRESCRIBE MORE THAN 5 TABS PER MONTH OF THIS MEDICATION. I WILL ALSO START THE PATIENT ON MOBIC 15 MG 10 TABLETS FOR THE MONTH TO BE USED NEEDED FOR PAIN. THE PATIENT WILL NOT USE TORADOL AND MOBIC THE SAME DAYS. THE PATIENT WILL FOLLOW UP WITH THE NURSE PRACTITIONER IN 4 WEEKS. INSTRUCTIONS WERE GIVEN, QUESTIONS WERE ANSWERED, PATIENT REPORTS UNDERSTANDING AND AGREES WITH THE PLAN. I, LUIS PEÑA, DOCUMENTED THE ABOVE INFORMATION ACTING A SCRIBE FOR DR. KHAN. I HAVE REVIEWED THE ABOVE DOCUMENT, WRITTEN BY LUIS ROMO AND I VERIFY THAT IT IS ACCURATE. DEAR NOÉ COYLE, Valery.Paige: THANK YOU FOR YOUR KIND REFERRAL OF MANDI MENDOSA. IF YOU WANT TO DISCUSS HER CASE WITH ME PLEASE CALL ME AT THE PAIN CENTER AT [phone]. SINCERELY, HARSHAL KHAN MD PAIN MEDICINE . OTHERS START KETOROLAC TROMETHAMINE TABLET, 10 MG, 1 TABLET WITH FOOD OR MILK NEEDED, ORALLY FOR NECK PAIN, DAILY, 30 DAYS, 5, REFILLS 0 START MOBIC TABLET, 15 MG, 1 TABLET, ORALLY WITH FOOD, ONCE A DAY FOR PAIN MDD1, 30 DAY(S), 10, REFILLS 0 PREVENTIVE MEDICINE PAIN CLINIC TEACHING: MEDICATIONS TORADOL AND MOBIC HANDOUTS PRINTED, REVIEWED AND GIVEN TO PT. EM. PROCEDURE CODES FA211 ESTABILISHED PATIENT [facility] FACILITY CHARGE G8427 CURRENT MEDS W/DOSAGES DOCUMENTED G8730 PAIN ASSESS POS TOOL F/U PLAN DOC DISPOSITION & COMMUNICATION FOLLOW UP 4 WEEKS (REASON: MEDS, F/U WITH LATIN PROFESSOR) ELECTRONICALLY SIGNED BY HARSHAL KHAN MD, MD ON 04/21/2019 AT 04:17 PM EDT DISCLAIMER : THIS IS A VISIT SUMMARY EXTRACTED FROM THE [employer] CHART. IT IS NOT A COPY OF THE [employer] PROGRESS NOTE. PROSPERD
== END ==
LOC: M PAIN 14:00
PROVIDERS: ATTEND Anesthesiology
DX: M47.812 Spondylosis without myelopathy or radiculopathy, cervical region (principal); M54.2 Cervicalgia; M79.18 Myalgia, other site; F41.9 Anxiety disorder, unspecified; B08.1 Molluscum contagiosum; N92.6 Irregular menstruation, unspecified; Z79.899 Other long term (current) drug therapy; Z87.891 Personal history of nicotine dependence; Z88.0 Allergy status to penicillin; Z88.2 Allergy status to sulfonamides

== ENCOUNTER → 2019-04-15 | Outpatient (REF) | payer MEDICARE, MEDICAID ==
[2019-04-15 16:16] LABS: APPEARANCE, URINE CLEAR (CLEAR); BACTERIA, URINE AUTO NEGATIVE (NEGATIVE); BILIRUBIN, URINE AUTO NEGATIVE (NEGATIVE); BLOOD, URINE BLOOD 1+ (NEGATIVE); COLOR, URINE YELLOW (YELLOW); GLUCOSE, URINE (UA) AUTO NEGATIVE (NEGATIVE); KETONE, URINE AUTO NEGATIVE (NEGATIVE); LEUKOCYTE ESTERASE, URINE AUTO 1+ (NEGATIVE); MUCUS, URINE SMALL (NEGATIVE); NITRITE, URINE AUTO NEGATIVE (NEGATIVE); PROTEIN, URINE AUTO NEGATIVE (NEGATIVE); RBC, URINE AUTO 5 /HPF (0-3); SPECIFIC GRAVITY URINE AUTO 1.021 (1.002-1.035); SQUAMOUS EPITHELIAL CELL UR AU 6 /HPF (0-6); UROBILINOGEN, URINE AUTO 0.2 mg/dL (0.0-2.0); WBC, URINE AUTO 10 /HPF (0-3)
== END ==
LOC: M LAB REF 15:37
PROVIDERS: ATTEND Nurse Practitioner Family
DX: R30.0 Dysuria (principal); R10.9 Unspecified abdominal pain

== ENCOUNTER → 2019-04-16 | Outpatient (REF) | payer MEDICARE, MEDICAID ==
[2019-04-16 18:57] LABS: AMORPHOUS SEDIMENT LARGE (NEGATIVE); APPEARANCE, URINE TURBID (CLEAR); BACTERIA, URINE AUTO NEGATIVE (NEGATIVE); BILIRUBIN, URINE AUTO NEGATIVE (NEGATIVE); BLOOD, URINE BLOOD 2+ (NEGATIVE); COLOR, URINE YELLOW (YELLOW); GLUCOSE, URINE (UA) AUTO NEGATIVE (NEGATIVE); KETONE, URINE AUTO NEGATIVE (NEGATIVE); LEUKOCYTE ESTERASE, URINE AUTO NEGATIVE (NEGATIVE); MUCUS, URINE SMALL (NEGATIVE); NITRITE, URINE AUTO NEGATIVE (NEGATIVE); PROTEIN, URINE AUTO NEGATIVE (NEGATIVE); RBC, URINE AUTO 8 /HPF (0-3); SPECIFIC GRAVITY URINE AUTO 1.028 (1.002-1.035); SQUAMOUS EPITHELIAL CELL UR AU 0 /HPF (0-6); UROBILINOGEN, URINE AUTO 0.2 mg/dL (0.0-2.0); WBC, URINE AUTO 3 /HPF (0-3)
== END ==
LOC: M SMT 16:58
PROVIDERS: ATTEND Nurse Practitioner Women's Health
DX: R31.29 Other microscopic hematuria (principal)
CPT/HCPCS: 81001; 87086; 88108; G0463

== ENCOUNTER → 2019-04-17 | Outpatient (CLI) | payer MEDICARE, MEDICAID ==
[2019-04-18 10:31] LABS: BLOOD UREA NITROGEN 12 MG/DL (7-18); CALCIUM LEVEL 8.9 MG/DL (8.5-10.1); CARBON DIOXIDE LEVEL 28 MEQ/L (21-32); CHLORIDE LEVEL 107 MEQ/L (98-107); CREATININE FOR GFR 0.76 MG/DL (0.55-1.30); GLOMERULAR FILTRATION RATE > 60.0 (>60); GLUCOSE, FASTING 78 MG/DL (70-100); SODIUM LEVEL 140 MEQ/L (136-145); TROPONIN I < 0.02 NG/ML (< 0.10)
== END ==
LOC: M WUC 14:37
PROVIDERS: ATTEND Internal Medicine Cardiovascular Disease
DX: R07.89 Other chest pain (principal)

== ENCOUNTER → 2019-04-21 | Outpatient (REF) | payer MEDICARE, MEDICAID ==
[2019-04-21 13:22] LABS: BASO % 0.7 % (0.0-1.0); EOS # 0.1 10^3/uL (0.0-0.50); EOS % 1.1 % (0.0-3.0); HEMATOCRIT 41.4 % (36.0-47.0); LYMPH # 1.4 10^3/uL (1.5-4.5); LYMPH % 32.2 % (24.0-44.0); MEAN CORPUSCULAR HEMOGLOBIN 29.6 pg (27.0-33.0); MEAN CORPUSCULAR HGB CONC 33.8 g/dl (32.0-36.5); MEAN CORPUSCULAR VOLUME 87.5 fl (80.0-96.0); MONO # 0.3 10^3/uL (0.0-0.8); MONO % 7.4 % (0.0-5.0); NEUTROPHILS # 2.6 10^3/uL (1.8-7.7); NEUTROPHILS % 58.4 % (36.0-66.0); PLATELET COUNT, AUTOMATED 231 10^3/uL (150-450); RED BLOOD COUNT 4.73 10^6/uL (4.00-5.40); WHITE BLOOD COUNT 4.4 10^3/uL (4.0-10.0)
[2019-04-21 13:29] LABS: ALBUMIN 3.9 GM/DL (3.2-5.2); ALT/SGPT 18 U/L (12-78); BILIRUBIN,TOTAL 0.5 MG/DL (0.2-1.0); BLOOD UREA NITROGEN 9 MG/DL (7-18); CALCIUM LEVEL 8.7 MG/DL (8.5-10.1); CARBON DIOXIDE LEVEL 28 MEQ/L (21-32); CHLORIDE LEVEL 108 MEQ/L (98-107); CHOLESTEROL LEVEL 167 MG/DL (<200); CHOLESTEROL RISK RATIO 4.073 (<5); FREE T4 1.09 NG/DL (0.76-1.46); GLOMERULAR FILTRATION RATE > 60.0 (>60); GLUCOSE, FASTING 100 MG/DL (70-100); HDL CHOLESTEROL 41 MG/DL (>40); LDL CHOLESTEROL 103 MG/DL (<100); NON-HDL-C 126 MG/DL; POTASSIUM SERUM 3.8 MEQ/L (3.5-5.1); SODIUM LEVEL 140 MEQ/L (136-145); TOTAL PROTEIN 7.1 GM/DL (6.4-8.2); TRIGLYCERIDES LEVEL 113 MG/DL (<150)
[2019-04-21 13:41] LABS: HEMOGLOBIN A1c 4.7 %
[2019-04-21 13:46] LABS: APPEARANCE, URINE HAZY (CLEAR); BACTERIA, URINE AUTO NEGATIVE (NEGATIVE); BILIRUBIN, URINE AUTO NEGATIVE (NEGATIVE); BLOOD, URINE BLOOD 2+ (NEGATIVE); COLOR, URINE YELLOW (YELLOW); GLUCOSE, URINE (UA) AUTO NEGATIVE (NEGATIVE); KETONE, URINE AUTO NEGATIVE (NEGATIVE); LEUKOCYTE ESTERASE, URINE AUTO NEGATIVE (NEGATIVE); MUCUS, URINE SMALL (NEGATIVE); NITRITE, URINE AUTO NEGATIVE (NEGATIVE); PROTEIN, URINE AUTO NEGATIVE (NEGATIVE); RBC, URINE AUTO 13 /HPF (0-3); SQUAMOUS EPITHELIAL CELL UR AU 4 /HPF (0-6); UROBILINOGEN, URINE AUTO 0.2 mg/dL (0.0-2.0); WBC, URINE AUTO 1 /HPF (0-3)
== END ==
LOC: M LAB REF 12:28
PROVIDERS: ATTEND Nurse Practitioner Family
DX: Z00.00 Encounter for general adult medical examination without abnormal findings (principal); R07.89 Other chest pain; Z79.899 Other long term (current) drug therapy

== ENCOUNTER → 2019-05-13 | Outpatient (REF) | payer MEDICARE, MEDICAID ==
[2019-05-13 14:30] LABS: CHLAMYDIA DNA AMPLIFICATION NEGATIVE (NEGATIVE); GC DNA AMPLIFICATION NEGATIVE (NEGATIVE)
== END ==
LOC: M LAB REF 11:33
PROVIDERS: ATTEND Nurse Practitioner Family
DX: Z11.3 Encounter for screening for infections with a predominantly sexual mode of transmission (principal)
CPT/HCPCS: 87210; 87491; 87591; G0463

== ENCOUNTER → 2019-07-22 | Outpatient (CLI) | payer MEDICARE, MEDICAID ==
--- NOTE | 2019-08-05 01:47 | ECWPNPC ---
PATIENT NAME: MANDI MENDOSA : 1985 GENDER: FEMALE VISIT DATE: 07/22/2019 DISCHARGE DATE: 07/22/19 1113 VISIT LOCKED DATE TIME: PHYSICIAN: LIONEL FARRELL RESOURCE: LIONEL FARRELL REASON FOR APPOINTMENT 1. NECK HISTORY OF PRESENT ILLNESS HISTORY OF PRESENT ILLNESS: PAIN THE PATIENT DESCRIBES THE PAIN... FALL RISK SCREENING: SCREENING :NO FALLS REPORTED IN THE LAST YEAR PAIN SCREENING: PATIENT HAS A COMPLAINT OF ACUTE OR CHRONIC PAIN :YES 34 YEAR OLD FEMALE PATIENT WITH A HISTORY OF CHRONIC NECK PAIN. THIS IS A FOLLOW UP VISIT AFTER INITIAL EVALUATION IN MARCH.SHE WAS STARTED ON TORODOL AND MOBIC AT THAT VISIT.STATES SHE STOPPED MOBIC IT WAS INEFFECTIVE.STATES TORODOL IS HELPFUL.THE PATIENT DESCRIBES THE PAIN ACHING, SHARP, AND DAILY WITH A PAIN SCORE OF 7-10/10 DEPENDING ON PHYSICAL ACTIVITY. THE PATIENT STATES THE PAIN BEGINS IN HER NECK AND RADIATES UP TOWARDS HER HEAD. THE PATIENT SAYS SHE HAS BEEN SUFFERING FROM THIS PAIN FOR MANY YEARS. THE PATIENT ALSO HAS LOW BACK PAIN, BUT SAYS THE NECK PAIN IS WORSE. CURRENT MEDICATIONS TAKING KETOROLAC TROMETHAMINE 10 MG TABLET 1 TABLET WITH FOOD OR MILK NEEDED ORALLY FOR NECK PAIN DAILY NOT-TAKING MOBIC 15 MG TABLET 1 TABLET ORALLY WITH FOOD ONCE A DAY FOR PAIN MDD1 NOT-TAKING TYLENOL 325 MG TABLET 1 TABLET NEEDED ORALLY EVERY 4 HRS NOT-TAKING CLEOCIN 2 % CREAM 1 APPLICATORFUL AT BEDTIME VAGINAL ONCE A DAY NOT-TAKING KEFLEX 500 MG CAPSULE 1 CAPSULE ORALLY DIRECTED- 1 HOUR PRIOR TO CYSTOSCOPY NOT-TAKING HYDROXYZINE HCL 25 MG TABLET 1 TABLET NEEDED ORALLY EVERY 8 HRS NOT-TAKING VITAMIN D 1000 UNIT TABLET 1 TABLET ORALLY TWICE DAILY NOT-TAKING CLOMID 50 MG TABLET 1 TABLET ORALLY ONCE A DAY (DAY3-7) MEDICATION LIST REVIEWED AND RECONCILED WITH THE PATIENT PAST MEDICAL HISTORY MENORRHAGIA FOLLOWING TOP HISTORY OF ALCOHOL ABUSE TOP (OCT 2010) POOR HISTORIAN MOLLUSCUM CONTAGIOSUM IRREG MENSES AFTER STOPPING DEPO 04/04-08/05 ANXIETY HX FREQ BV AND CANDIDIASIS VUL/VAG HIGH RISK SEXUAL BEHAVIOR CHRONIC NECK PAIN ALLERGIES AMOXICILLIN: HIVES - ALLERGY BACTRIM DS: VULVAR PRURITIS - SIDE EFFECTS SURGICAL HISTORY D&C FOR TOP 11/2010 FAMILY HISTORY FATHER: 46 YRS, SUICIDE BY HANGING MOTHER: ALIVE 48 YRS, CERVICAL CANCER, VON WILLEBRAND SIBLINGS: ALIVE, THREE SISTERS: 20, 22, 26, ALL NO KNOWN MEDICAL PROBLEMS. ONE BROTHER: 16, FEEDING TUBE A . ANOTHER BROTHER, VON WILLEBRAND SON(S): ALIVE 8 YRS PATERNAL GRAND FATHER: , UNKNOWN, DIAGNOSED WITH OTHER MALIGNANT NEOPLASM OF UNSPECIFIED SITE PATERNAL GRAND MOTHER: , CANCER MATERNAL GRAND FATHER: ALIVE 68 YRS, DIABETES MELLITUS MATERNAL GRAND MOTHER: ALIVE 67 YRS, DIABETES MELLITUS 1 BROTHER(S) , 3 SISTER(S) . 3 SON(S) , 1 DAUGHTER(S) - HEALTHY. DENIES BREAST, COLON OR OVARIAN CANCERS. SOCIAL HISTORY GENERAL: TOBACCO USE ARE YOU A:FORMER SMOKER HOW LONG HAS IT BEEN SINCE YOU LAST SMOKED?1-5 YEARS QUITE 2 1/2 YRS AGO HIV / HEP-C SCREENING HIV TEST OFFERED TO PATIENT:YES DATE OFFERED:08/05/2018 TEST ACCEPTED:YES BROCHURE PROVIDED TO PATIENTYES OTHERS AT HOME: CHILDREN.FIANCE. HOUSING: RENTS APARTMENT. EDUCATION HIGH SCHOOL DEGREE. DIET: REGULAR. LANGUAGE AMHARIC. DOMESTIC VIOLENCE DENIES SEXUAL, PHYSICAL OR EMOTIONAL ABUSE, 01/26/14 HITS=N/A, NO PARTNER BUT FORM WAS NOT COMPLETED BY PT. BMI CARE GOAL FOLLOW-UP ABOVE NORMAL BMI FOLLOW-UPDIETARY NEEDS EDUCATION, GIVING ENCOURAGEMENT TO EXERCISE, WEIGHT MONITORING RECREATIONAL DRUG USE DENIES. EXERCISE: NO REGULAR EXERCISE. LEARNING BARRIERS / SPECIAL NEEDS CHANGE FROM LAST VISIT?NO BARRIERS TO LEARNING?NO HEARING IMPAIRED?NO VISION IMPAIRED?NO COGNITIVELY IMPAIRED?NO READINESS TO LEARN?YES LEARNING PREFERENCES?NO LEARNING CAPABILITIES PRESENT?YES EMOTIONAL BARRIERS?NO SPECIAL DEVICES?NO DUCT LAYER HELPER NEEDED?NO PAIN CLINIC PFS, CLERGY, PUBLIC HEALTH REFERRALS HAS THE PATIENT BEEN EDUCATED REGARDING HIS/HER PLAN OF CARE?YES HAS THE PATIENT BEEN EDUCATED REGARDING PAIN, THE RISK FOR PAIN, THE IMPORTANCE OF EFFECTIVE PAIN MANAGEMENT, AND THE PAIN ASSESSMENT PROCESS?YES LATEX QUESTIONNAIRE LATEX ALLERGY : HAVE YOU EVER DEVELOPED ANY TYPE OF REACTION AFTER HANDLING LATEX PRODUCTS SUCH RUBBER GLOVES, CONDOMS, DIAPHRAGMS, BALLOONS, SOCKS, OR UNDERWEAR?NO LATEX ALLERGY : HAVE YOU EVER DEVELOPED ANY TYPE OF REACTION DURING OR AFTER DENTAL APPOINTMENT, VAGINAL/RECTAL EXAMINATION, SURGICAL PROCEDURE, OR ANY OTHER EXPOSURE?NO DATE ASKED : 03/04/2019 LATEX RISK : HAVE YOU EVER HAD ANY DIFFICULTY BREATHING OR HIVES AFTER EATING OR HANDLING ANY FRUITS, OR VEGETABLES; SUCH KIWI, BANANAS, STONE FRUITS, OR CHESTNUTSNO LATEX RISK : DO YOU HAVE A PREVIOUS PERSONAL HISTORY OF MORE THAN NINE SURGERIES, SPINA BIFIDA, OR REPEATED CATHERIZATIONS? NO LATEX RISK : ARE YOU FREQUENTLY EXPOSED TO LATEX PRODUCTS IN YOUR OCCUPATION?NO CAFFEINE CAFFEINE USE?YES HOW OFTEN AND HOW MUCH? SODA DAILY - DECAF COFFEE ADVANCE DIRECTIVE ADVANCE DIRECTIVE DISCUSSED WITH PATIENT:YES PT DOES NOT HAVE HCP AND DECLINES INFO AT THIS TIME. 04/11/19 BV ZOROASTRIAN LATTER-DAY. MARITAL STATUS: SINGLE. OCCUPATION: UNEMPLOYED. SEXUAL HX HAD SEX IN THE LAST 12 MONTHS (VAGINAL, ORAL, OR ANAL)?YES WITHMEN ONLY PREVENTION STRATEGIES DISCUSSED:CONDOMS USE PROTECTION?NO LMP:07/13/18 HAVE YOU EVER HAD AN STD?NO REVIEWED WITH PT 04/11/19 1439 BV. HOSPITALIZATION/MAJOR DIAGNOSTIC PROCEDURE CHILDBIRTH X4 REVIEW OF SYSTEMS REVIEWED BY: PROVIDER: LIONEL CARTWRIGHT . CONSTITUTIONAL: ANY CHANGE IN YOUR MEDICAL CONDITION? NO . CHILLS NO . FEVER NO . INFECTION: DO YOU HAVE NEW INFECTIONS? NO . DO YOU HAVE HISTORY OF MRSA? NO . MUSCULOSKELETAL: ANY NEW PATTERNS OF PAIN OR NUMBNESS? NO . GASTROENTEROLOGY: ANY NEW CHANGE IN BOWEL CONTROL? NO . GENITOURINARY: ANY NEW CHANGE IN BLADDER CONTROL? NO . IS THERE A CHANCE YOU COULD BE ? NO . HEMATOLOGY/LYMPH: DO YOU TAKE ANY BLOOD THINNERS? (FOR EXAMPLE- COUMADIN, PLAVIX, AGGRENOX, PLATEL, PRADAXA, OR XARELTO) NO . WHEN WAS YOUR LAST DOSE? DATE: TIME: . NEUROLOGY: HAVE YOU FALLEN IN THE PAST 12 MONTHS? NO . ANY NEW EXTREMITY NUMBNESS OR WEAKNESS? NO . CARDIOLOGY: DO YOU HAVE A PACEMAKER OR DEFIBRILLATOR? NO . RESPIRATORY: HAVE YOU BEEN SICK IN THE PAST WEEK? NO . FEVER NO . FLU LIKE SYMPTOMS? NO . COUGH NO . INTEGUMENTARY: DO YOU HAVE ANY RASHES OR OPEN SORES? NO . ALLERGIC/IMMUNO: ARE YOU ALLERGIC TO IV DYE? NO . ANY NEW ALLERGIES? NO . PSYCHIATRIC: DO YOU HAVE THOUGHTS OF HURTING YOURSELF OR SOMEONE ELSE? NO . ARE YOU ABUSED, NEGLECTED, OR IN AN UNSAFE ENVIRONMENT? NO . ENDOCRINOLOGY: ARE YOU DIABETIC? NO . OTHER: DO YOU NEED ANY PRESCRIPTIONS? NO . IF YES, PLEASE LIST: ____ . ANY NEW PROBLEMS WITH YOUR MEDICATIONS? NO . WHEN DID YOU LAST EAT? ____ . WHEN DID YOU LAST DRINK? ____ . WHAT DID YOU LAST DRINK? ____ . NAME OF PERSON DRIVING YOU HOME? ____ . DO YOU HAVE ANY OTHER QUESTIONS OR CONCERNS NO . VITAL SIGNS WT 181.6 LBS, HT 65 IN, BMI 30.22 INDEX, BP 108/55 MM HG, HR 78 /MIN, RR 18 /MIN, TEMP 97.6 F, OXYGEN SAT % 97%, NA INITIALS AW 1005, REVIEWED BY: LS. EXAMINATION GENERAL EXAMINATION: GENERAL AWAKE,ALERT ,PLEASANT . PSYCH AFFECT NORMAL . LUNGS: LUNG ROWELL ARE CLEAR TO AUSCULTATION BILATERALLY. GOOD MOVEMENT OF AIR . HEART: S1, S2 IN A REGULAR RATE AND RHYTHM. NO SIGNIFICANT MURMURS, RUBS OR GALLOPS NOTED . CERVICAL TRIGGER POINTS: CERVICAL AND TRAPEZIUS BILAT..PAIN IS AGGREVATED WITH ROJM NECK. ASSESSMENTS CERVICALGIA - M54.2 (PRIMARY) TREATMENT CERVICALGIA REFILL KETOROLAC TROMETHAMINE TABLET, 10 MG, 1 TABLET WITH FOOD OR MILK NEEDED, ORALLY FOR NECK PAIN, Q8H PRN HEADACHE NOT TO EXCEED 20 TAB PER 30 DAYS, 30 DAYS, 20, REFILLS 1 NOTES: PT 2XWK X6 WKS -NECK PAIN-MYOFASCIAL RELEASE. PROCEDURE CODES [id number] ESTABILISHED PATIENT [facility] CHARGE DISPOSITION & COMMUNICATION FOLLOW UP 6-8WKS F/U LIONEL ELECTRONICALLY SIGNED BY GABBIE LAMB ON 08/04/2019 AT 02:41 PM EST DISCLAIMER : THIS IS A VISIT SUMMARY EXTRACTED FROM THE [employer] CHART. IT IS NOT A COPY OF THE [employer] PROGRESS NOTE. MTDD
== END ==
LOC: M PAIN 10:00
PROVIDERS: ATTEND Nurse Practitioner Family
DX: M54.2 Cervicalgia (principal); G89.29 Other chronic pain; Z86.59 Personal history of other mental and behavioral disorders; Z87.891 Personal history of nicotine dependence; Z88.1 Allergy status to other antibiotic agents; Z79.899 Other long term (current) drug therapy

== ENCOUNTER → 2019-09-09 | Outpatient (CLI) | payer MEDICARE, MEDICAID ==
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
== END ==
LOC: M PAIN 09:45
PROVIDERS: ATTEND Nurse Practitioner Family
DX: M54.2 Cervicalgia (principal)

== ENCOUNTER → 2019-10-08 | Outpatient (REF) | payer MEDICARE, MEDICAID | LOC: M SFHCWAGY 13:28 | PROVIDERS: ATTEND Nurse Practitioner Women's Health | DX: Z12.4 Encounter for screening for malignant neoplasm of cervix (principal) | CPT/HCPCS: G0101; G0123; G0463 ==

== ENCOUNTER → 2019-11-19 | Outpatient (CLI) | payer MEDICARE, MEDICAID ==
--- NOTE | 2019-11-20 01:15 | ECWPNPC ---
PATIENT NAME: MANDI MENDOSA : 1985 GENDER: FEMALE VISIT DATE: 11/19/2019 DISCHARGE DATE: 11/19/19 1108 VISIT LOCKED DATE TIME: PHYSICIAN: LIONEL FARRELL RESOURCE: LIONEL FARRELL REASON FOR APPOINTMENT 1. NECK HISTORY OF PRESENT ILLNESS HISTORY OF PRESENT ILLNESS: HERE FOR FOLLOW-UP OF PERSISTENT NECK PAIN AND HEAD PAIN. HAS BEEN ATTENDING PHYSICAL THERAPY AND ON ONE OCCASION PT AGGRAVATED HEADACHE. USING KETOROLAC 10 MG WHEN NECESSARY FOR SEVERE HEADACHES ,INSTRUCTED NOT TO EXCEED 20 TABS FOR 30 DAY PERIOD. REPORTS THAT THIS IS HELPFUL MOST OF THE TIME, BUT THERE ARE A FEW OCCASIONS A MONTH WHERE KETOROLAC IS NOT HELPING. DISCUSSED MEDICATION AND TREATMENT OPTIONS. RATING PAIN LEVEL A 7/10 VAS. PAIN IS INTERMITTENT. PAIN THE PATIENT DESCRIBES THE PAIN... FALL RISK SCREENING: SCREENING :NO FALLS REPORTED IN THE LAST YEAR CURRENT MEDICATIONS TAKING KETOROLAC TROMETHAMINE 10 MG TABLET 1 TABLET WITH FOOD OR MILK NEEDED ORALLY FOR NECK PAIN Q8H PRN HEADACHE NOT TO EXCEED 20 TAB PER 30 DAYS TAKING CLOMIPHENE CITRATE 50 MG TABLET 1 TABLET DAYS 3-7 ORALLY ONCE A DAY NOT-TAKING TRICHLOROACETIC ACID 80 % LIQUID DIRECTED EXTERNALLY APPLIED IN OFFICE NOT-TAKING DIFLUCAN 150 MG TABLET 1 TABLET ORALLY DIRECTED NOT-TAKING MOBIC 15 MG TABLET 1 TABLET ORALLY WITH FOOD ONCE A DAY FOR PAIN MDD1 NOT-TAKING TYLENOL 325 MG TABLET 1 TABLET NEEDED ORALLY EVERY 4 HRS NOT-TAKING CLEOCIN 2 % CREAM 1 APPLICATORFUL AT BEDTIME VAGINAL ONCE A DAY NOT-TAKING HYDROXYZINE HCL 25 MG TABLET 1 TABLET NEEDED ORALLY EVERY 8 HRS NOT-TAKING VITAMIN D 1000 UNIT TABLET 1 TABLET ORALLY TWICE DAILY NOT-TAKING CLOMID 50 MG TABLET 1 TABLET ORALLY ONCE A DAY (DAY3-7) NOT-TAKING PODOFILOX 0.5 % SOLUTION 1 APPLICATION STOP FOR 4 DAYS THEN REPEAT CYCLE EXTERNALLY TWICE A DAY NOT-TAKING KEFLEX 500 MG CAPSULE 1 CAPSULE ORALLY DIRECTED- 1 HOUR PRIOR TO CYSTOSCOPY MEDICATION LIST REVIEWED AND RECONCILED WITH THE PATIENT PAST MEDICAL HISTORY MENORRHAGIA FOLLOWING TOP HISTORY OF ALCOHOL ABUSE TOP (OCT 2010) POOR HISTORIAN MOLLUSCUM CONTAGIOSUM IRREG MENSES AFTER STOPPING DEPO 04/04-08/05 ANXIETY HX FREQ BV AND CANDIDIASIS VUL/VAG CHRONIC NECK PAIN ALLERGIES AMOXICILLIN: HIVES - ALLERGY BACTRIM DS: VULVAR PRURITIS - SIDE EFFECTS SURGICAL HISTORY D&C FOR TOP 11/2010 FAMILY HISTORY FATHER: 46 YRS, SUICIDE BY HANGING MOTHER: ALIVE 49 YRS, CERVICAL CANCER, VON WIL[place]BRAND SIBLINGS: ALIVE, THREE SISTERS: 20, 22, 26, ALL NO KNOWN MEDICAL PROBLEMS. ONE BROTHER: 16, FEEDING TUBE A . ANOTHER BROTHER, [place] SON(S): ALIVE 9 YRS PATERNAL GRAND FATHER: , UNKNOWN, DIAGNOSED WITH OTHER MALIGNANT NEOPLASM OF UNSPECIFIED SITE PATERNAL GRAND MOTHER: , CANCER MATERNAL GRAND FATHER: ALIVE 69 YRS, DIABETES MELLITUS MATERNAL GRAND MOTHER: ALIVE 68 YRS, DIABETES MELLITUS 1 BROTHER(S) , 3 SISTER(S) . 3 SON(S) , 1 DAUGHTER(S) - HEALTHY. DENIES BREAST, COLON OR OVARIAN CANCERS.MATERNAL GRANDPARENTS - HEART PROBLEMS. SOCIAL HISTORY GENERAL: TOBACCO USE ARE YOU A:FORMER SMOKER HOW LONG HAS IT BEEN SINCE YOU LAST SMOKED?1-5 YEARS QUITE 2 1/2 YRS AGO HIV / HEP-C SCREENING HIV TEST OFFERED TO PATIENT:YES DATE OFFERED:09/30/2019 TEST ACCEPTED:NO HEP-C TEST OFFERED TO PATIENT:YES DATE OFFERED:09/30/2019 REASON:PATIENT DECLINED TEST ACCEPTED:NO REASON:PATIENT DECLINED BROCHURE PROVIDED TO PATIENTNO OTHERS AT HOME: CHILDREN.FIANCE. HOUSING: RENTS APARTMENT. EDUCATION HIGH SCHOOL DEGREE. DIET: REGULAR. LANGUAGE [place]. DOMESTIC VIOLENCE DENIES SEXUAL, PHYSICAL OR EMOTIONAL ABUSE, 01/26/14 HITS=N/A, NO PARTNER BUT FORM WAS NOT COMPLETED BY PT. BMI CARE GOAL FOLLOW-UP ABOVE NORMAL BMI FOLLOW-UPDIETARY NEEDS EDUCATION, GIVING ENCOURAGEMENT TO EXERCISE, WEIGHT MONITORING RECREATIONAL DRUG USE DENIES. EXERCISE: NO REGULAR EXERCISE. LEARNING BARRIERS / SPECIAL NEEDS CHANGE FROM LAST VISIT?NO BARRIERS TO LEARNING?NO HEARING IMPAIRED?NO VISION IMPAIRED?NO COGNITIVELY IMPAIRED?NO READINESS TO LEARN?YES LEARNING PREFERENCES?NO LEARNING CAPABILITIES PRESENT?YES EMOTIONAL BARRIERS?NO SPECIAL DEVICES?NO OPERATIONS AND MAINTENANCE TECHNICIAN NEEDED?NO PAIN CLINIC PFS, CLERGY, PUBLIC HEALTH REFERRALS HAS THE PATIENT BEEN EDUCATED REGARDING HIS/HER PLAN OF CARE?YES HAS THE PATIENT BEEN EDUCATED REGARDING PAIN, THE RISK FOR PAIN, THE IMPORTANCE OF EFFECTIVE PAIN MANAGEMENT, AND THE PAIN ASSESSMENT PROCESS?YES LATEX QUESTIONNAIRE LATEX ALLERGY : HAVE YOU EVER DEVELOPED ANY TYPE OF REACTION AFTER HANDLING LATEX PRODUCTS SUCH RUBBER GLOVES, CONDOMS, DIAPHRAGMS, BALLOONS, SOCKS, OR UNDERWEAR?NO LATEX ALLERGY : HAVE YOU EVER DEVELOPED ANY TYPE OF REACTION DURING OR AFTER DENTAL APPOINTMENT, VAGINAL/RECTAL EXAMINATION, SURGICAL PROCEDURE, OR ANY OTHER EXPOSURE?NO DATE ASKED : 10/08/2019 LATEX RISK : HAVE YOU EVER HAD ANY DIFFICULTY BREATHING OR HIVES AFTER EATING OR HANDLING ANY FRUITS, OR VEGETABLES; SUCH KIWI, BANANAS, STONE FRUITS, OR CHESTNUTSNO LATEX RISK : DO YOU HAVE A PREVIOUS PERSONAL HISTORY OF MORE THAN NINE SURGERIES, SPINA BIFIDA, OR REPEATED CATHERIZATIONS? NO LATEX RISK : ARE YOU FREQUENTLY EXPOSED TO LATEX PRODUCTS IN YOUR OCCUPATION?NO CAFFEINE CAFFEINE USE?YES HOW OFTEN AND HOW MUCH? SODA DAILY - DECAF COFFEE ADVANCE DIRECTIVE ADVANCE DIRECTIVE DISCUSSED WITH PATIENT:YES PT DOES NOT HAVE HCP AND DECLINES INFO AT THIS TIME. 09/09/19 JOSEPH MORAVIAN VOODOO. MARITAL STATUS: SINGLE. ALCOHOL SCREENING DID YOU HAVE A DRINK CONTAINING ALCOHOL IN THE PAST YEAR?NO POINTS0 INTERPRETATIONNEGATIVE OCCUPATION: UNEMPLOYED. SEXUAL HX HAD SEX IN THE LAST 12 MONTHS (VAGINAL, ORAL, OR ANAL)?YES WITHMEN ONLY USE PROTECTION?NO LMP:09/16/2019 HAVE YOU EVER HAD AN STD?NO REVIEWED WITH PT 04/11/19 1439 BVREVIEWED WITH PATIENT 09/09/19 1004 JS. HOSPITALIZATION/MAJOR DIAGNOSTIC PROCEDURE CHILDBIRTH X4 REVIEW OF SYSTEMS REVIEWED BY: PROVIDER: LIONEL CARTWRIGHT . CONSTITUTIONAL: ANY CHANGE IN YOUR MEDICAL CONDITION? NO . CHILLS NO . FEVER NO . INFECTION: DO YOU HAVE NEW INFECTIONS? NO . DO YOU HAVE HISTORY OF MRSA? NO . MUSCULOSKELETAL: ANY NEW PATTERNS OF PAIN OR NUMBNESS? STARTED PT YESTERDAY AND HAS A MIGRAIN TODAY . GASTROENTEROLOGY: ANY NEW CHANGE IN BOWEL CONTROL? NO . GENITOURINARY: ANY NEW CHANGE IN BLADDER CONTROL? NO . IS THERE A CHANCE YOU COULD BE ? NO . HEMATOLOGY/LYMPH: DO YOU TAKE ANY BLOOD THINNERS? (FOR EXAMPLE- COUMADIN, PLAVIX, AGGRENOX, PLATEL, PRADAXA, OR XARELTO) NO . WHEN WAS YOUR LAST DOSE? DATE: TIME: . NEUROLOGY: HAVE YOU FALLEN IN THE PAST 12 MONTHS? NO . ANY NEW EXTREMITY NUMBNESS OR WEAKNESS? NO . CARDIOLOGY: DO YOU HAVE A PACEMAKER OR DEFIBRILLATOR? NO . RESPIRATORY: HAVE YOU BEEN SICK IN THE PAST WEEK? NO . FEVER NO . FLU LIKE SYMPTOMS? NO . COUGH NO . INTEGUMENTARY: DO YOU HAVE ANY RASHES OR OPEN SORES? NO . ALLERGIC/IMMUNO: ARE YOU ALLERGIC TO IV DYE? NO . ANY NEW ALLERGIES? NO . PSYCHIATRIC: DO YOU HAVE THOUGHTS OF HURTING YOURSELF OR SOMEONE ELSE? NO . ARE YOU ABUSED, NEGLECTED, OR IN AN UNSAFE ENVIRONMENT? NO . ENDOCRINOLOGY: ARE YOU DIABETIC? NO . OTHER: DO YOU NEED ANY PRESCRIPTIONS? NO . IF YES, PLEASE LIST: ____ . ANY NEW PROBLEMS WITH YOUR MEDICATIONS? NO . WHEN DID YOU LAST EAT? ____ . WHEN DID YOU LAST DRINK? ____ . WHAT DID YOU LAST DRINK? ____ . NAME OF PERSON DRIVING YOU HOME? ____ . DO YOU HAVE ANY OTHER QUESTIONS OR CONCERNS NO . VITAL SIGNS WT 183 LBS, HT 65 IN, BMI 30.45 INDEX, BP 113/56 MM HG, HR 83 /MIN, RR 18 /MIN, TEMP 98.0 F, OXYGEN SAT % 100%, NA INITIALS AW 1014, REVIEWED BY: KG. EXAMINATION GENERAL EXAMINATION: GENERAL AWAKE,ALERT ,PLEASANT . PSYCH AFFECT NORMAL . LUNGS: LUNG ROWELL ARE CLEAR TO AUSCULTATION BILATERALLY. GOOD MOVEMENT OF AIR . HEART: S1, S2 IN A REGULAR RATE AND RHYTHM. NO SIGNIFICANT MURMURS, RUBS OR GALLOPS NOTED . ASSESSMENTS CERVICALGIA - M54.2 (PRIMARY) TREATMENT CERVICALGIA REFILL KETOROLAC TROMETHAMINE TABLET, 10 MG, 1 TABLET WITH FOOD OR MILK NEEDED, ORALLY FOR NECK PAIN, Q8H PRN HEADACHE NOT TO EXCEED 20 TAB PER 30 DAYS, 30 DAYS, 20, REFILLS 1 START TRAMADOL HCL TABLET, 50 MG, 1 TABLET NEEDED, ORALLY, Q8H PRN MDD3 #20 TABLETS FOR 30 DAY SUPPLY, 30 DAYS, 20, REFILLS 0 NOTES: [facility] PA[facility] C[facility] NARCOTIC AGREEMENT WAS REVIEWED AND SIGNED TODAY BY THE PATIENT. SEE ATTACHED DOCUMENT FOR FULL DETAILS; SPECIFIC ISSUES WERE REVIEWED: 1) KEEP PAIN MEDS IN THEIR ORIGINAL BOTTLES AND ANY WEEKLY PLANNERS ARE TO BE BROUGHT TO THE PAIN CENTER AT EVERY VISIT. 2) THE PATIENT IS NOT TO INCREASE DOSING OR TIMING OF THEIR PAIN MEDICATION WITHOUT SPECIFIC DIRECTION OF THEIR PAIN CENTERPROVIDER (NOT ER OR OTHER PROVIDERS). 3) ALL PAIN MEDS ARE TO BE KEPT SECURED, IN A LOCKED BOX. 4) NO PAIN MEDS ARE TO BE SHARED WITH ANY OTHER PERSON FOR ANY REASON. 5) NO PAIN MEDS MAY BE TAKEN FROM ANY FRIENDS OR RELATIVES FOR ANY REASON 6) NO MEDS OR SUBSTANCES WHICH ARE NOT LEGAL ARE TO BE USED- NO MARIJUANA, NO COCAINE, AMPHETAMINES, HEROIN, OR OTHERS ARE EVER TO BE USED. 7)URINE TESTING IS DONE TO ACCOUNT FOR MEDS AND SUBSTANCES BEING TAKEN AND WILL BE DONE RANDOMLY.CONTINUE HOME EXERCISE/STRETCHING FORMAL PT, RISKS OF NARCOTIC/OPIOD MEDICATIONS INCLUDES BUT IS NOT LIMITED TO RISK OF DEPENDANCE/DEVELOPMENT OF ADDICTION, MOOD DISTURBANCE AND DEPRESSION, OSTEOPOROSIS, HORMONAL AND LABIDAL CHANGES, RESPIRATORY DEPRESSION AND . PATIENT IS ADVISED NOT TO DRIVE OR DRINK ALCOHOL WHILE ON THESE MEDICATIONS. DISPOSITION & COMMUNICATION FOLLOW UP 2 MONTHS ELECTRONICALLY SIGNED BY GABBIE LAMB ON 11/19/2019 AT 01:17 PM EST DISCLAIMER : THIS IS A VISIT SUMMARY EXTRACTED FROM THE [employer] CHART. IT IS NOT A COPY OF THE [employer] PROGRESS NOTE. LILIAN
== END ==
LOC: M PAIN 10:00
PROVIDERS: ATTEND Nurse Practitioner Family
DX: M54.2 Cervicalgia (principal)

== ENCOUNTER → 2020-03-24 | Outpatient (CLI) | payer MEDICARE, MEDICAID ==
--- NOTE | 2020-04-06 03:09 | ECWPNPC ---
PATIENT NAME: MANDI MENDOSA : 1985 GENDER: FEMALE VISIT DATE: 03/24/2020 DISCHARGE DATE: 03/24/20 1224 VISIT LOCKED DATE TIME: PHYSICIAN: LIONEL FARRELL RESOURCE: LIONEL FARRELL REASON FOR APPOINTMENT 1. NECK HISTORY OF PRESENT ILLNESS GENERAL: HERE FOR FOLLOW-UP OF CHRONIC NECK PAIN AND HEADACHES. TRAMADOL WAS STARTED AT HER LAST VISIT IN OCTOBER. STATES IT DOES HELP. SHE USES IT VERY INFREQUENTLY. CAUSING SOME NAUSEA AND SHE WAS WONDERING IF WE COULD PRESCRIBE SOMETHING TO GO WITH TRAMADOL WHEN SHE DOES USE IT FOR THE NAUSEA. REVIEWED MRI OF THE CERVICAL SPINE AND DISCUSSED TREATMENT OPTIONS. AFTER A LENGTHY DISCUSSION SHE HAS DECIDED TO HOLD OFF ON DOING ANY INJECTIONS. -. FALL RISK SCREENING: SCREENING :NO FALLS REPORTED IN THE LAST YEAR PAIN SCREENING: PATIENT HAS A COMPLAINT OF ACUTE OR CHRONIC PAIN :NO NURSING NOTE: -. PAIN CENTER INTAKE QUESTIONS: DO YOU HAVE A HISTORY OF MRSA? :NO DO YOU TAKE A BLOOD THINNERS? :NO DO YOU HAVE ANY BLEEDING DISORDERS? :NO ANY NEW NUMBNESS OR WEAKNESS IN YOUR LEGS OR ARMS? :NO ANY PACEMAKER,DEFIBRILLATOR, OR DORSAL COLUMN STIMULATOR? :NO DO YOU HAVE ANY RASHES OR OPEN SORES? :NO ARE YOU ALLERGIC TO IV DYE? :NO ARE YOU DIABETIC? :NO ANY NEW PROBLEMS WITH YOUR MEDICATIONS? :YES TRAMADOL/ NAUSEA HAVE YOU RECEIVED A VACCINE IN THE PAST 30 DAYS? :NO DO YOU PLAN TO RECEIVE A VACCINE IN THE NEXT 21 DAYS? :NO DO YOU NEED ANY PRESCRIPTION? :NO DO YOU TAKE ANY IMMUNOSUPPRESSIVE MEDICATIONS? :NO IS THERE A CHANCE YOU COULD BE ? :NO ARE YOU BREAST FEEDING? :NO CURRENT MEDICATIONS TAKING CLOMIPHENE CITRATE 50 MG TABLET 1 TABLET DAYS 3-7 ORALLY ONCE A DAY TAKING TRAMADOL HCL 50 MG TABLET 1 TABLET NEEDED ORALLY Q8H PRN MDD3 #20 TABLETS FOR 30 DAY SUPPLY TAKING KETOROLAC TROMETHAMINE 10 MG TABLET 1 TABLET WITH FOOD OR MILK NEEDED ORALLY FOR NECK PAIN Q8H PRN HEADACHE NOT TO EXCEED 20 TAB PER 30 DAYS NOT-TAKING CLOMIPHENE CITRATE 50 MG TABLET 2 TABLETS DAYS 5-9 ORALLY ONCE A DAY NOT-TAKING TRICHLOROACETIC ACID 80 % LIQUID DIRECTED EXTERNALLY APPLIED IN OFFICE NOT-TAKING DIFLUCAN 150 MG TABLET 1 TABLET ORALLY DIRECTED NOT-TAKING MOBIC 15 MG TABLET 1 TABLET ORALLY WITH FOOD ONCE A DAY FOR PAIN MDD1 NOT-TAKING TYLENOL 325 MG TABLET 1 TABLET NEEDED ORALLY EVERY 4 HRS NOT-TAKING CLEOCIN 2 % CREAM 1 APPLICATORFUL AT BEDTIME VAGINAL ONCE A DAY NOT-TAKING HYDROXYZINE HCL 25 MG TABLET 1 TABLET NEEDED ORALLY EVERY 8 HRS NOT-TAKING VITAMIN D 1000 UNIT TABLET 1 TABLET ORALLY TWICE DAILY NOT-TAKING CLOMID 50 MG TABLET 1 TABLET ORALLY ONCE A DAY (DAY3-7) NOT-TAKING PODOFILOX 0.5 % SOLUTION 1 APPLICATION STOP FOR 4 DAYS THEN REPEAT CYCLE EXTERNALLY TWICE A DAY NOT-TAKING KEFLEX 500 MG CAPSULE 1 CAPSULE ORALLY DIRECTED- 1 HOUR PRIOR TO CYSTOSCOPY MEDICATION LIST REVIEWED AND RECONCILED WITH THE PATIENT PAST MEDICAL HISTORY MENORRHAGIA FOLLOWING [facility] HISTORY OF ALCOHOL ABUSE TOP (OCT 2010) POOR HISTORIAN MOLLUSCUM CONTAGIOSUM IRREG MENSES AFTER STOPPING DEPO 04/04-08/05 ANXIETY HX FREQ BV AND CANDIDIASIS VUL/VAG CHRONIC NECK PAIN ALLERGIES AMOXICILLIN: HIVES - ALLERGY BACTRIM DS: VULVAR PRURITIS - SIDE EFFECTS SURGICAL HISTORY D&C FOR [facility] 11/2010 FAMILY HISTORY FATHER: 46 YRS, SUICIDE BY HANGING MOTHER: ALIVE 49 YRS, CERVICAL CANCER, VON [place]IL[place] SIBLINGS: ALIVE, THREE SISTERS: 20, 22, 26, ALL NO KNOWN MEDICAL PROBLEMS. ONE BROTHER: 16, FEEDING TUBE A . ANOTHER BROTHER, [place] SON(S): ALIVE 9 YRS PATERNAL GRAND FATHER: , UNKNOWN, DIAGNOSED WITH OTHER MALIGNANT NEOPLASM OF UNSPECIFIED SITE PATERNAL GRAND MOTHER: , CANCER MATERNAL GRAND FATHER: ALIVE 69 YRS, DIABETES MELLITUS MATERNAL GRAND MOTHER: ALIVE 68 YRS, DIABETES MELLITUS 1 BROTHER(S) , 3 SISTER(S) . 3 SON(S) , 1 DAUGHTER(S) - HEALTHY. DENIES BREAST, COLON OR OVARIAN CANCERS.MATERNAL GRANDPARENTS - HEART PROBLEMS. SOCIAL HISTORY GENERAL: TOBACCO USE ARE YOU A:FORMER SMOKER HOW LONG HAS IT BEEN SINCE YOU LAST SMOKED?1-5 YEARS QUITE 2 1/2 YRS AGO LATEX QUESTIONNAIRE LATEX ALLERGY : HAVE YOU EVER DEVELOPED ANY TYPE OF REACTION AFTER HANDLING LATEX PRODUCTS SUCH RUBBER GLOVES, CONDOMS, DIAPHRAGMS, BALLOONS, SOCKS, OR UNDERWEAR?NO LATEX ALLERGY : HAVE YOU EVER DEVELOPED ANY TYPE OF REACTION DURING OR AFTER DENTAL APPOINTMENT, VAGINAL/RECTAL EXAMINATION, SURGICAL PROCEDURE, OR ANY OTHER EXPOSURE?NO LATEX RISK : HAVE YOU EVER HAD ANY DIFFICULTY BREATHING OR HIVES AFTER EATING OR HANDLING ANY FRUITS, OR VEGETABLES; SUCH KIWI, BANANAS, STONE FRUITS, OR CHESTNUTSNO LATEX RISK : DO YOU HAVE A PREVIOUS PERSONAL HISTORY OF MORE THAN NINE SURGERIES, SPINA BIFIDA, OR REPEATED CATHERIZATIONS? NO LATEX RISK : ARE YOU FREQUENTLY EXPOSED TO LATEX PRODUCTS IN YOUR OCCUPATION?NO DATE ASKED : 03/24/2020 BMI CARE GOAL FOLLOW-UP ABOVE NORMAL BMI FOLLOW-UPDIETARY NEEDS EDUCATION, GIVING ENCOURAGEMENT TO EXERCISE, WEIGHT MONITORING ALCOHOL SCREENING DID YOU HAVE A DRINK CONTAINING ALCOHOL IN THE PAST YEAR?NO POINTS0 INTERPRETATIONNEGATIVE RECREATIONAL DRUG USE DENIES. CAFFEINE CAFFEINE USE?YES HOW OFTEN AND HOW MUCH? SODA DAILY - DECAF COFFEE SEXUAL HX HAD SEX IN THE LAST 12 MONTHS (VAGINAL, ORAL, OR ANAL)?YES WITHMEN ONLY USE PROTECTION?NO LMP:09/16/2019 HAVE YOU EVER HAD AN STD?NO HIV / HEP-C SCREENING HIV TEST OFFERED TO PATIENT:YES DATE OFFERED:09/30/2019 TEST ACCEPTED:NO HEP-C TEST OFFERED TO PATIENT:YES DATE OFFERED:09/30/2019 REASON:PATIENT DECLINED TEST ACCEPTED:NO REASON:PATIENT DECLINED BROCHURE PROVIDED TO PATIENTNO YARSANI HINDUISM. LANGUAGE [place]. EDUCATION HIGH SCHOOL DEGREE. LEARNING BARRIERS / SPECIAL NEEDS CHANGE FROM LAST VISIT?NO BARRIERS TO LEARNING?NO HEARING IMPAIRED?NO VISION IMPAIRED?NO COGNITIVELY IMPAIRED?NO READINESS TO LEARN?YES LEARNING PREFERENCES?NO LEARNING CAPABILITIES PRESENT?YES EMOTIONAL BARRIERS?NO SPECIAL DEVICES?NO BREAST SPLITTER NEEDED?NO DOMESTIC VIOLENCE DENIES SEXUAL, PHYSICAL OR EMOTIONAL ABUSE, 01/26/14 HITS=N/A, NO PARTNER BUT FORM WAS NOT COMPLETED BY PT. OCCUPATION: UNEMPLOYED. DIET: REGULAR. EXERCISE: NO REGULAR EXERCISE. MARITAL STATUS: SINGLE. OTHERS AT HOME: CHILDREN.FIANCE. NEW PATIENT PAIN DIARY TODAY'S VISIT 02/13/20 PATIENT DESCRIBES PAIN :ACHING, IT COMES AND GOES FROM 0-10, WHAT LEVEL IS YOUR PAIN TODAY?4 PRECIPITATING FACTORS LIGHT, NOISE ALLEVIATING FACTORS MEDS, RESTING IMPACT ON FUNCTION YES PAIN CLINIC PFS, CLERGY, PUBLIC HEALTH REFERRALS HAS THE PATIENT BEEN EDUCATED REGARDING HIS/HER PLAN OF CARE?YES HAS THE PATIENT BEEN EDUCATED REGARDING PAIN, THE RISK FOR PAIN, THE IMPORTANCE OF EFFECTIVE PAIN MANAGEMENT, AND THE PAIN ASSESSMENT PROCESS?YES HOUSING: RENTS APARTMENT. ADVANCE DIRECTIVE ADVANCE DIRECTIVE DISCUSSED WITH PATIENT:YES PT DOES NOT HAVE HCP AND DECLINES INFO AT THIS TIME. REVIEWED WITH PT 04/11/19 1439 BVREVIEWED WITH PATIENT 09/09/19 1004 JS. HOSPITALIZATION/MAJOR DIAGNOSTIC PROCEDURE CHILDBIRTH X4 REVIEW OF SYSTEMS CONSTITUTIONAL: ANY RECENT FEVER NO . CHILLS NO . WEIGHT CHANGE OF UNKNOWN REASONS NO . GASTROENTEROLOGY: NEW UNEXPLAINABLE CHANGES IN BOWEL CONTROL NO . CONSTIPATION NO . GENITOURINARY: ANY NEW CHANGE IN BLADDER CONTROL? NO . NEUROLOGY: NEW ONSET DIZZINESS OR NEUROLOGICAL CHANGES NOT MENTIONED NO . NEW NUMBNESS OR PAIN PATTERNS NOT MENTIONED AND PERTINENT TO TODAY'S VISIT NO . CARDIOLOGY: NEW CHEST PRESSURE NO . NEW CHEST PAIN NO . RESPIRATORY: UNEXPLAINABLE COUGH NO . NEW SHORTNESS OF BREATH NO . VITAL SIGNS WT 183 LBS, HT 65 IN, BMI 30.45 INDEX, BP 110/54 MM HG, HR 79 /MIN, RR 18 /MIN, TEMP 97.7 F, OXYGEN SAT % 92%, NA INITIALS AW 1143. EXAMINATION GENERAL EXAMINATION: GENERAL AWAKE,ALERT ,PLEASANT . PSYCH AFFECT NORMAL . LUNGS: LUNG ROWELL ARE CLEAR TO AUSCULTATION BILATERALLY. GOOD MOVEMENT OF AIR . HEART: S1, S2 IN A REGULAR RATE AND RHYTHM. NO SIGNIFICANT MURMURS, RUBS OR GALLOPS NOTED . ASSESSMENTS CERVICALGIA - M54.2 (PRIMARY) TREATMENT CERVICALGIA START ZOFRAN TABLET, 4 MG, 1 TABLET, ORALLY, PRN FOR NAUSEA, 30 DAY(S), 15, REFILLS 2 NOTES: CONTINUE WITH USE OF TRAMADOL PERIODICALLY FOR SEVERE HEADACHE PAIN. USE ZOFRAN FOR NAUSEA. , ISTOP REGISTRY REVIEWED AND DEMONSTRATES COMPLLIANCE. URINE TOXICOLOGY TODAY , RISKS OF NARCOTIC/OPIOD MEDICATIONS INCLUDES BUT IS NOT LIMITED TO RISK OF DEPENDANCE/DEVELOPMENT OF ADDICTION, MOOD DISTURBANCE AND DEPRESSION, OSTEOPOROSIS, HORMONAL AND LABIDAL CHANGES, RESPIRATORY DEPRESSION AND . PATIENT IS ADVISED NOT TO DRIVE OR DRINK ALCOHOL WHILE ON THESE MEDICATIONS. PROCEDURE CODES FA211 ESTABILISHED PATIENT [facility] FACILITY CHARGE DISPOSITION & COMMUNICATION FOLLOW UP 3 MONTHS (REASON: MED MANAGEMENT/HEADACHE/NECK PAIN) ELECTRONICALLY SIGNED BY GABBIE LAMB ON 04/05/2020 AT 04:07 PM EDT DISCLAIMER : THIS IS A VISIT SUMMARY EXTRACTED FROM THE [employer] CHART. IT IS NOT A COPY OF THE [employer] PROGRESS NOTE. MTDD
== END ==
LOC: M PAIN 11:15
PROVIDERS: ATTEND Nurse Practitioner Family
DX: M54.2 Cervicalgia (principal)

== ENCOUNTER → 2020-08-11 | Outpatient (CLI) | payer MEDICARE, MEDICAID ==
--- NOTE | 2020-08-14 00:04 | ECWPNPC ---
PATIENT NAME: MANDI MENDOSA : 1985 GENDER: FEMALE VISIT DATE: 08/11/2020 DISCHARGE DATE: 08/11/20 1518 VISIT LOCKED DATE TIME: PHYSICIAN: LIONEL FARRELL RESOURCE: LIONEL FARRELL REASON FOR APPOINTMENT 1. NECK/HEADACHES HISTORY OF PRESENT ILLNESS DEPRESSION SCREENING: PHQ-2 (2015 EDITION) LITTLE INTEREST OR PLEASURE IN DOING THINGS?NOT AT ALL FEELING DOWN, DEPRESSED, OR HOPELESS?NOT AT ALL TOTAL SCORE0 GENERAL: HERE FOR FOLLOW-UP OF CHRONIC NECK AND HEADACHE. CURRENT MEDICATION IS ONLY MARGINALLY EFFECTIVE AND CAUSES SIDE EFFECTS. DISCUSSED USE OF TOPAMAX AND IMITREX FOR MIGRAINE HEADACHE. WAS FOLLOWING WITH [facility] WITH LAST VISIT APPROXIMATELY 6 MONTHS AGO. SHE HAS TRIED MULTIPLE DIFFERENT MEDICATIONS BUT SHE DOESN'T RECALL TRYING THESE MEDICATIONS. SHE IS LOOKING FOR MEDICATION WITHOUT SIDE EFFECTS. -. FALL RISK SCREENING: SCREENING :NO FALLS REPORTED IN THE LAST YEAR PAIN SCREENING: PATIENT HAS A COMPLAINT OF ACUTE OR CHRONIC PAIN :YES LOCATION OF PAIN:HEAD, NECK INTENSITY OF PAIN (SCALE OF 1 TO 10):3 WHAT DOES YOUR PAIN FEEL LIKE:SHARP, THROBBING DURATION:INTERMITTENT PAIN IS INCREASED BY:ACTIVITIES, OTHERS PAIN IS DECREASED BY:USE OF PAIN MEDICATIONS, OTHERS COLD PACK, HEAT NURSING NOTE: PATIENT WOULD LIKE TO DISCUSS MIGRAINE MEDICATIONS. PAIN CENTER INTAKE QUESTIONS: DO YOU HAVE A HISTORY OF MRSA? :NO DO YOU TAKE A BLOOD THINNERS? :NO DO YOU HAVE ANY BLEEDING DISORDERS? :NO ANY NEW NUMBNESS OR WEAKNESS IN YOUR LEGS OR ARMS? :NO STATES RANDOM LEG AND ARM ACHES ANY PACEMAKER,DEFIBRILLATOR, OR DORSAL COLUMN STIMULATOR? :NO DO YOU HAVE ANY RASHES OR OPEN SORES? :NO ARE YOU ALLERGIC TO IV DYE? :NO ARE YOU DIABETIC? :NO ANY NEW PROBLEMS WITH YOUR MEDICATIONS? :NO HAVE YOU RECEIVED A VACCINE IN THE PAST 30 DAYS? :NO DO YOU PLAN TO RECEIVE A VACCINE IN THE NEXT 21 DAYS? :NO DO YOU NEED ANY PRESCRIPTION? :YES KETOROLAC DO YOU TAKE ANY IMMUNOSUPPRESSIVE MEDICATIONS? :NO IS THERE A CHANCE YOU COULD BE ? :NO ARE YOU BREAST FEEDING? :NO CURRENT MEDICATIONS TAKING CLOMIPHENE CITRATE 50 MG TABLET 1 TABLET DAYS 3-7 ORALLY ONCE A DAY TAKING TRAMADOL HCL 50 MG TABLET 1 TABLET NEEDED ORALLY Q8H PRN MDD3 #20 TABLETS FOR 30 DAY SUPPLY TAKING KETOROLAC TROMETHAMINE 10 MG TABLET 1 TABLET WITH FOOD OR MILK NEEDED ORALLY FOR NECK PAIN Q8H PRN HEADACHE NOT TO EXCEED 20 TAB PER 30 DAYS TAKING ZOFRAN 4 MG TABLET 1 TABLET ORALLY PRN FOR NAUSEA NOT-TAKING CLOMIPHENE CITRATE 50 MG TABLET 2 TABLETS DAYS 5-9 ORALLY ONCE A DAY NOT-TAKING TRICHLOROACETIC ACID 80 % LIQUID DIRECTED EXTERNALLY APPLIED IN OFFICE NOT-TAKING DIFLUCAN 150 MG TABLET 1 TABLET ORALLY DIRECTED NOT-TAKING MOBIC 15 MG TABLET 1 TABLET ORALLY WITH FOOD ONCE A DAY FOR PAIN MDD1 NOT-TAKING TYLENOL 325 MG TABLET 1 TABLET NEEDED ORALLY EVERY 4 HRS NOT-TAKING CLEOCIN 2 % CREAM 1 APPLICATORFUL AT BEDTIME VAGINAL ONCE A DAY NOT-TAKING HYDROXYZINE HCL 25 MG TABLET 1 TABLET NEEDED ORALLY EVERY 8 HRS NOT-TAKING VITAMIN D 1000 UNIT TABLET 1 TABLET ORALLY TWICE DAILY NOT-TAKING CLOMID 50 MG TABLET 1 TABLET ORALLY ONCE A DAY (DAY3-7) NOT-TAKING PODOFILOX 0.5 % SOLUTION 1 APPLICATION STOP FOR 4 DAYS THEN REPEAT CYCLE EXTERNALLY TWICE A DAY NOT-TAKING KEFLEX 500 MG CAPSULE 1 CAPSULE ORALLY DIRECTED- 1 HOUR PRIOR TO CYSTOSCOPY MEDICATION LIST REVIEWED AND RECONCILED WITH THE PATIENT PAST MEDICAL HISTORY MENORRHAGIA FOLLOWING [facility] HISTORY OF ALCOHOL ABUSE TOP (OCT 2010) POOR HISTORIAN MOLLUSCUM CONTAGIOSUM IRREG MENSES AFTER STOPPING DEPO 04/04-08/05 ANXIETY HX FREQ BV AND CANDIDIASIS VUL/VAG CHRONIC NECK PAIN MIGRAINES ALLERGIES AMOXICILLIN: HIVES - ALLERGY BACTRIM DS: VULVAR PRURITIS - SIDE EFFECTS SURGICAL HISTORY D&C FOR [facility] 11/2010 FAMILY HISTORY FATHER: 46 YRS, SUICIDE BY HANGING MOTHER: ALIVE 49 YRS, CERVICAL CANCER, VON WIL[place]BR[employer] SIBLINGS: ALIVE, THREE SISTERS: 20, 22, 26, ALL NO KNOWN MEDICAL PROBLEMS. ONE BROTHER: 16, FEEDING TUBE A . ANOTHER BROTHER, [place] SON(S): ALIVE 9 YRS PATERNAL GRAND FATHER: , UNKNOWN, DIAGNOSED WITH OTHER MALIGNANT NEOPLASM OF UNSPECIFIED SITE PATERNAL GRAND MOTHER: , CANCER MATERNAL GRAND FATHER: ALIVE 69 YRS, DIABETES MELLITUS MATERNAL GRAND MOTHER: ALIVE 68 YRS, DIABETES MELLITUS 1 BROTHER(S) , 3 SISTER(S) . 3 SON(S) , 1 DAUGHTER(S) - HEALTHY. DENIES BREAST, COLON OR OVARIAN CANCERS.MATERNAL GRANDPARENTS - HEART PROBLEMS. SOCIAL HISTORY GENERAL: TOBACCO USE ARE YOU A:FORMER SMOKER HOW LONG HAS IT BEEN SINCE YOU LAST SMOKED?1-5 YEARS QUITE 2 1/2 YRS AGO LATEX QUESTIONNAIRE LATEX ALLERGY : HAVE YOU EVER DEVELOPED ANY TYPE OF REACTION AFTER HANDLING LATEX PRODUCTS SUCH RUBBER GLOVES, CONDOMS, DIAPHRAGMS, BALLOONS, SOCKS, OR UNDERWEAR?NO LATEX ALLERGY : HAVE YOU EVER DEVELOPED ANY TYPE OF REACTION DURING OR AFTER DENTAL APPOINTMENT, VAGINAL/RECTAL EXAMINATION, SURGICAL PROCEDURE, OR ANY OTHER EXPOSURE?NO LATEX RISK : HAVE YOU EVER HAD ANY DIFFICULTY BREATHING OR HIVES AFTER EATING OR HANDLING ANY FRUITS, OR VEGETABLES; SUCH KIWI, BANANAS, STONE FRUITS, OR CHESTNUTSNO LATEX RISK : DO YOU HAVE A PREVIOUS PERSONAL HISTORY OF MORE THAN NINE SURGERIES, SPINA BIFIDA, OR REPEATED CATHERIZATIONS? NO LATEX RISK : ARE YOU FREQUENTLY EXPOSED TO LATEX PRODUCTS IN YOUR OCCUPATION?NO DATE ASKED : 03/24/2020 BMI CARE GOAL FOLLOW-UP ABOVE NORMAL BMI FOLLOW-UPDIETARY NEEDS EDUCATION, GIVING ENCOURAGEMENT TO EXERCISE, WEIGHT MONITORING ALCOHOL SCREENING DID YOU HAVE A DRINK CONTAINING ALCOHOL IN THE PAST YEAR?NO POINTS0 INTERPRETATIONNEGATIVE RECREATIONAL DRUG USE DENIES. CAFFEINE CAFFEINE USE?YES HOW OFTEN AND HOW MUCH? SODA DAILY - DECAF COFFEE SEXUAL HX HAD SEX IN THE LAST 12 MONTHS (VAGINAL, ORAL, OR ANAL)?YES WITHMEN ONLY USE PROTECTION?NO LMP:09/16/2019 HAVE YOU EVER HAD AN STD?NO HIV / HEP-C SCREENING HIV TEST OFFERED TO PATIENT:YES DATE OFFERED:09/30/2019 TEST ACCEPTED:NO HEP-C TEST OFFERED TO PATIENT:YES DATE OFFERED:09/30/2019 REASON:PATIENT DECLINED TEST ACCEPTED:NO REASON:PATIENT DECLINED BROCHURE PROVIDED TO PATIENTNO DRUZE UATSDIN. LANGUAGE ARABIC. EDUCATION HIGH SCHOOL DEGREE. LEARNING BARRIERS / SPECIAL NEEDS CHANGE FROM LAST VISIT?NO BARRIERS TO LEARNING?NO HEARING IMPAIRED?NO VISION IMPAIRED?NO COGNITIVELY IMPAIRED?NO READINESS TO LEARN?YES LEARNING PREFERENCES?NO LEARNING CAPABILITIES PRESENT?YES EMOTIONAL BARRIERS?NO SPECIAL DEVICES?NO BAND SPLICER NEEDED?NO DOMESTIC VIOLENCE DENIES SEXUAL, PHYSICAL OR EMOTIONAL ABUSE, 01/26/14 HITS=N/A, NO PARTNER BUT FORM WAS NOT COMPLETED BY PT. OCCUPATION: UNEMPLOYED. DIET: REGULAR. EXERCISE: NO REGULAR EXERCISE. MARITAL STATUS: SINGLE. OTHERS AT HOME: CHILDREN.FIANCE. PAIN CLINIC PFS, CLERGY, PUBLIC HEALTH REFERRALS HAS THE PATIENT BEEN EDUCATED REGARDING HIS/HER PLAN OF CARE?YES HAS THE PATIENT BEEN EDUCATED REGARDING PAIN, THE RISK FOR PAIN, THE IMPORTANCE OF EFFECTIVE PAIN MANAGEMENT, AND THE PAIN ASSESSMENT PROCESS?YES HOUSING: RENTS APARTMENT. ADVANCE DIRECTIVE ADVANCE DIRECTIVE DISCUSSED WITH PATIENT:YES PT DOES NOT HAVE ANY ADVANCED DIRECTIVES AND DECLINES INFO ON HCP AT THIS TIME. HOSPITALIZATION/MAJOR DIAGNOSTIC PROCEDURE CHILDBIRTH X4 REVIEW OF SYSTEMS CONSTITUTIONAL: ANY RECENT FEVER NO . CHILLS NO . WEIGHT CHANGE OF UNKNOWN REASONS NO . GASTROENTEROLOGY: NEW UNEXPLAINABLE CHANGES IN BOWEL CONTROL NO . CONSTIPATION NO . GENITOURINARY: ANY NEW CHANGE IN BLADDER CONTROL? NO . NEUROLOGY: NEW ONSET DIZZINESS OR NEUROLOGICAL CHANGES NOT MENTIONED NO . NEW NUMBNESS OR PAIN PATTERNS NOT MENTIONED AND PERTINENT TO TODAY'S VISIT NO . CARDIOLOGY: NEW CHEST PRESSURE NO . NEW CHEST PAIN NO . RESPIRATORY: UNEXPLAINABLE COUGH NO . NEW SHORTNESS OF BREATH NO . VITAL SIGNS WT 185.8 LBS, HT 65 IN, BMI 30.92 INDEX, BP 111/59 MM HG, HR 70 /MIN, RR 16 /MIN, TEMP 97.6 F, OXYGEN SAT % 99%, SAFE IN ENV? (Y/N) Y, REVIEWED BY: JSJ. MOHAN RN. EXAMINATION GENERAL EXAMINATION: GENERALAWAKE,ALERT ,PLEASANT . PSYCHAFFECT NORMAL . LUNGS:LUNG ROWELL ARE CLEAR TO AUSCULTATION BILATERALLY. GOOD MOVEMENT OF AIR . HEART:S1, S2 IN A REGULAR RATE AND RHYTHM. NO SIGNIFICANT MURMURS, RUBS OR GALLOPS NOTED . 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 INFORMED HER THAT NARCOTIC PAIN MEDICATIONS ARE NOT INDICATED FOR MIGRAINE HEADACHE. INSTRUCTED HOW TO USE NEW MEDICATIONS PRESCRIBED TODAY. PATIENT VOICES UNDERSTANDING. FOLLOW-UP IS SCHEDULED IN 2 MONTHS. I MAY RECOMMEND REFERRING HER BACK TO NEUROLOGY FOR HEADACHE MANAGEMENT. SHE DOES NOT WANT TO TRY INJECTION THERAPY. OTHERS START IMITREX TABLET, 50 MG, 1 TABLET AT LEAST 2 HOURS BETWEEN DOSES NEEDED, ORALLY, E MAY REPEAT IN 2 HR, 30 DAYS, 15, REFILLS 1 START TOPAMAX TABLET, 25 MG, 1 TABLET, ORALLY, ONCE A DAY, 30 DAY(S), 30, REFILLS 1 PROCEDURE CODES FA211 ESTABILISHED PATIENT [facility] FACILITY CHARGE DISPOSITION & COMMUNICATION FOLLOW UP MED MANAGEMENT (REASON: MIGRAINE NEW MEDS F/U) ELECTRONICALLY SIGNED BY GABBIE LAMB ON 08/13/2020 AT 02:27 PM EST DISCLAIMER : THIS IS A VISIT SUMMARY EXTRACTED FROM THE [employer] CHART. IT IS NOT A COPY OF THE [employer] PROGRESS NOTE. LILIAN
== END ==
LOC: M PAIN 14:15
PROVIDERS: ATTEND Nurse Practitioner Family
DX: G43.809 Other migraine, not intractable, without status migrainosus (principal); F41.9 Anxiety disorder, unspecified; M54.2 Cervicalgia; Z87.891 Personal history of nicotine dependence; Z79.891 Long term (current) use of opiate analgesic; Z79.899 Other long term (current) drug therapy; Z88.0 Allergy status to penicillin; Z88.2 Allergy status to sulfonamides

== ENCOUNTER → 2020-12-30 | Outpatient (REF) | payer MEDICARE, MEDICAID | LOC: M PLALAB 13:16 | PROVIDERS: ATTEND Nurse Practitioner Women's Health | DX: Z11.3 Encounter for screening for infections with a predominantly sexual mode of transmission (principal); Z53.9 Procedure and treatment not carried out, unspecified reason ==

== ENCOUNTER → 2021-02-08 | Outpatient (REF) | payer MEDICARE, MEDICAID ==
[2021-03-02 11:11] LABS: CHLAMYDIA DNA AMPLIFICATION NEGATIVE (NEGATIVE); GC DNA AMPLIFICATION NEGATIVE (NEGATIVE)
== END ==
LOC: M SFHCWAGY 09:52
PROVIDERS: ATTEND Nurse Practitioner Women's Health
DX: Z12.4 Encounter for screening for malignant neoplasm of cervix (principal); Z11.3 Encounter for screening for infections with a predominantly sexual mode of transmission
CPT/HCPCS: 81025; 87491; 87591; 87624; G0123; G0463

== ENCOUNTER → 2021-06-08 | Outpatient (CLI) | payer MEDICARE, MEDICAID ==
[~2021-06-08] MED LIST changes: +ISOVUE-370 76% 100ML VIAL As Ordered ONE
--- NOTE | 2021-06-08 17:15 | REP ---
INDICATION: INFERTILITY. COMPARISON: None. TECHNIQUE: The endometrium was cannulated and contrast was injected by the attending curator natural history museum Dr. Deleon. Fluoroscopic spot films were acquired by BRAYDEN Medina, under the direct supervision of Dr. Yañez. Images reviewed prior to dictation with Dr. Yañez. FINDINGS: Fluoroscopy spot radiographs document filling of a normal endometrial cavity. There is normal isthmic and ampullary fallopian tube opacification, and spill was documented at of the left fallopian tube. Hydrosalpinx without spill of the right fallopian tube. IMPRESSION: 1. Normal endometrial cavity. 2. Normal fallopian tube opacification and spill of the left fallopian tube. 3. Hydrosalpinx without documented spill of the right fallopian tube. 2.2 minutes of fluoroscopy time was utilized for this procedure. Some fluoroscopic images are performed with last image hold technology. These images require no additional radiation. <Electronically signed by Savanna Pang > 06/08/21 1645 <Electronically signed by Musa Yañez > 06/08/21 1711
== END ==
LOC: M RADPRO 12:01
PROVIDERS: ATTEND Specialist
DX: N97.9 Female infertility, unspecified (principal); N70.11 Chronic salpingitis
CPT/HCPCS: 58340; 74740; 81025; Q9967

== ENCOUNTER 2021-07-26 02:49 | Emergency (ER) | payer MEDICARE, MEDICAID ==
[~2021-07-26] VITALS: Ht 165.1 cm; Wt 89.5 kg
[~2021-07-26 02:49] MED LIST changes: -ISOVUE-370 76% 100ML VIAL As Ordered ONE
[2021-07-26 04:14] LABS: BASO % 0.3 % (0.0-1.0); EOS # 0.1 10^3/uL (0.0-0.5); EOS % 1.3 % (0.0-3.0); HEMATOCRIT 38.6 % (36.0-47.0); LYMPH # 1.8 10^3/uL (1.5-5.0); LYMPH % 26.2 % (24.0-44.0); MEAN CORPUSCULAR HEMOGLOBIN 28.8 pg (27.0-33.0); MEAN CORPUSCULAR HGB CONC 33.7 g/dl (32.0-36.5); MEAN CORPUSCULAR VOLUME 85.6 fl (80.0-96.0); MONO # 0.6 10^3/uL (0.0-0.8); MONO % 8.7 % (2.0-8.0); NEUTROPHILS # 4.3 10^3/uL (1.5-8.5); NEUTROPHILS % 63.2 % (36.0-66.0); PLATELET COUNT, AUTOMATED 237 10^3/uL (150-450); RED BLOOD COUNT 4.51 10^6/uL (4.00-5.40); WHITE BLOOD COUNT 6.8 10^3/uL (4.0-10.0)
[2021-07-26 04:41] LABS: BLOOD UREA NITROGEN 10 MG/DL (7-18); CALCIUM LEVEL 9.3 MG/DL (8.5-10.1); CARBON DIOXIDE LEVEL 26 MEQ/L (21-32); CHLORIDE LEVEL 107 MEQ/L (98-107); CREATININE FOR GFR 0.81 MG/DL (0.55-1.30); GLOMERULAR FILTRATION RATE > 60.0 (>60); GLUCOSE, FASTING 114 MG/DL (70-100); POTASSIUM SERUM 3.9 MEQ/L (3.5-5.1); SODIUM LEVEL 138 MEQ/L (136-145); TROPONIN I < 0.02 NG/ML (< 0.10)
[2021-07-26 04:42] LABS: HCG, SERUM QUALITATIVE NEGATIVE (NEGATIVE)
[2021-07-26] MEDS ORDERED: PANTOPRAZOLE 40MG VIAL (C9113 PER 1) IV ONE (07:25)
[2021-07-26] MEDS ORDERED: SUCRALFATE 1 GM TAB PO ONE (07:25)
[2021-07-26] MEDS ORDERED: ONDANSETRON 4MG/2ML VIAL IV ONE (07:25)
[2021-07-26 07:50] LABS: ALBUMIN 3.7 GM/DL (3.2-5.2); ALT/SGPT 25 U/L (12-78); BILIRUBIN,DIRECT < 0.1 MG/DL (0.0-0.2); BILIRUBIN,TOTAL 0.4 MG/DL (0.2-1.0); LIPASE 105 U/L (73-393); TOTAL PROTEIN 6.9 GM/DL (6.4-8.2)
[2021-07-26 08:14] LABS: APPEARANCE, URINE CLOUDY (CLEAR); BACTERIA, URINE AUTO NEGATIVE (NEGATIVE); BILIRUBIN, URINE AUTO NEGATIVE (NEGATIVE); BLOOD, URINE BLOOD 1+ (NEGATIVE); COLOR, URINE YELLOW (YELLOW); GLUCOSE, URINE (UA) AUTO NEGATIVE (NEGATIVE); KETONE, URINE AUTO NEGATIVE (NEGATIVE); LEUKOCYTE ESTERASE, URINE AUTO TRACE (NEGATIVE); MUCUS, URINE MODERATE (NEGATIVE); NITRITE, URINE AUTO NEGATIVE (NEGATIVE); PROTEIN, URINE AUTO NEGATIVE (NEGATIVE); RBC, URINE AUTO 7 /HPF (0-3); SPECIFIC GRAVITY URINE AUTO 1.026 (1.002-1.035); SQUAMOUS EPITHELIAL CELL UR AU 17 /HPF (0-6); UROBILINOGEN, URINE AUTO 0.2 mg/dL (0.0-2.0); WBC, URINE AUTO 7 /HPF (0-3)
--- NOTE | 2021-07-26 08:20 | REP ---
INDICATION: chest pain. COMPARISON: 05/03/2013 TECHNIQUE: PA lateral FINDINGS: The lung lei are well inflated. There is no pleural effusion definite infiltrate atelectasis or mass. See no definite nodules. No lateral pleural thickening or apical scarring. No evidence of pneumothorax or pneumomediastinum. The heart, mediastinal and hilar contours are normal. No abnormal widening of the mediastinum. The aorta and airway were unremarkable. The bony thorax is without compression deformity or focal lesion. There is no free air under the diaphragm. IMPRESSION: 1. No acute cardiopulmonary change. Stable chest from 05/03/2013. <Electronically signed by Aly Turcios > 07/26/21 0890
--- NOTE | 2021-07-26 08:33 | ECGEPIP ---
[facility] - ED Test Date: 2021-07-26 Pat Name: MANDI MENDOSA Department: Room: - Gender: Female Manager [employer]: KALYAN : 1985 Requested By: JOSE MANUEL Flores Order Number: [id number] Reading MD: Mayank Ferreira Measurements Intervals Sandy Rate: 69 P: 42 ND: 148 QRS: 66 QRSD: 76 T: 40 QT: 420 QTc: 450 Interpretive Statements Sinus rhythm with marked sinus arrhythmia POOR R WAVE PROGRESSION SIMILAR TO 09/18/18 Electronically Signed on 07-26-2021 8:33:19 EDT by Mayank Ferreira
[2021-07-26] MEDS ORDERED: traMADol 50 MG TAB PO ONE (08:40)
[2021-07-26] MEDS ORDERED: KETOROLAC 30 MG/ML 1ML VIAL IV ONE (08:40)
[2021-07-26] MEDS ORDERED: ACETAMINOPHEN 500 MG TAB PO ONE (08:40)
[2021-07-26] MEDS ORDERED: OMEP1CAP73 PO (09:11)
[2021-07-26] MEDS ORDERED: ONDA4TAB6 PO (09:11)
[2021-07-26] MEDS ORDERED: CARA1TAB6 PO (09:12)
[2021-07-26 09:17] VITALS: BP 118/63
== END 2021-07-26 09:26 | disposition home or self-care (01) ==
LOC: M ED 02:49
DX: R10.13 Epigastric pain (principal); Z88.0 Allergy status to penicillin; Z88.8 Allergy status to other drugs, medicaments and biological substances; Z88.2 Allergy status to sulfonamides
CPT/HCPCS: 71046; 80048; 80076; 81001; 83690; 84484; 84703; 85025; 85379; 93005; 96374; 96375; 99284; C9113; J1885; J2405

== ENCOUNTER → 2021-11-03 | Outpatient (CLI) | payer MEDICARE, MEDICAID ==
[~2021-11-03] MED LIST changes: +CARA1TAB6 PO; +OMEP1CAP73 PO; +ONDA4TAB6 PO
== END ==
LOC: M RAD 07:55
PROVIDERS: ATTEND Family Medicine Addiction Medicine
DX: R10.11 Right upper quadrant pain (principal); K82.8 Other specified diseases of gallbladder

== ENCOUNTER 2022-05-11 15:02 | Emergency (ER) | payer MEDICARE, MEDICAID ==
[~2022-05-11] VITALS: Ht 165.1 cm; Wt 86.4 kg
[2022-05-11] MEDS ORDERED: GI COCKTAIL 50ML BTL(HYOSCYAMINE/MAALOX/LIDOCAINE VISCOUS)(1:3:1) PO ONE (15:20)
[2022-05-11] MEDS ORDERED: SUCRALFATE 1 GM TAB PO ONE (15:20)
[2022-05-11] MEDS ORDERED: PANTOPRAZOLE 40MG VIAL IV ONE (15:20)
[2022-05-11] MEDS ORDERED: METOCLOPRAMIDE INJ 10MG/2ML VIAL (J2765 PER 1) IV ONE (15:25)
[2022-05-11 16:00] LABS: BASO % 0.3 % (0.0-1.0); EOS % 0.4 % (0.0-3.0); HEMATOCRIT 38.4 % (36.0-47.0); HEMOGLOBIN 13.5 g/dl (12.0-15.5); LYMPH # 1.9 10^3/uL (1.5-5.0); LYMPH % 18.8 % (24.0-44.0); MEAN CORPUSCULAR HEMOGLOBIN 29.5 pg (27.0-33.0); MEAN CORPUSCULAR HGB CONC 35.2 g/dl (32.0-36.5); MEAN CORPUSCULAR VOLUME 83.8 fl (80.0-96.0); MONO # 0.7 10^3/uL (0.0-0.8); MONO % 7.2 % (2.0-8.0); NEUTROPHILS # 7.2 10^3/uL (1.5-8.5); NEUTROPHILS % 72.8 % (36.0-66.0); PLATELET COUNT, AUTOMATED 228 10^3/uL (150-450); RED BLOOD COUNT 4.58 10^6/uL (4.00-5.40); WHITE BLOOD COUNT 9.9 10^3/uL (4.0-10.0)
[2022-05-11] MEDS ORDERED: MORPHINE 2 MG/ML 1ML VIAL IV ONE (16:05)
[2022-05-11 16:49] LABS: CK-MB VALUE MASS < 1.0 NG/ML (<3.6); CPK CREATINE PHOSPHOKINASE 44 U/L (26-192); MB/CK RELATIVE INDEX 2.27 (< OR =4)
[2022-05-11 16:51] LABS: ALBUMIN 3.7 GM/DL (3.2-5.2); ALT/SGPT 29 U/L (12-78); BILIRUBIN,DIRECT 0.3 MG/DL (0.0-0.2); BILIRUBIN,TOTAL 0.7 MG/DL (0.2-1.0); BLOOD UREA NITROGEN 7 MG/DL (7-18); CALCIUM LEVEL 8.8 MG/DL (8.5-10.1); CARBON DIOXIDE LEVEL 27 MEQ/L (21-32); CHLORIDE LEVEL 106 MEQ/L (98-107); CREATININE FOR GFR 0.79 MG/DL (0.55-1.30); GLOMERULAR FILTRATION RATE > 60.0 (>60); GLUCOSE, FASTING 100 MG/DL (70-100); LIPASE 111 U/L (73-393); POTASSIUM SERUM 3.6 MEQ/L (3.5-5.1); SODIUM LEVEL 140 MEQ/L (136-145); TOTAL PROTEIN 6.8 GM/DL (6.4-8.2)
[2022-05-11 17:31] LABS: BACTERIA, URINE LARGE AMOUNT; HYALINE CAST, URINE NONE SEEN /lpf (0-1); MUCUS, URINE LARGE AMOUNT (NEGATIVE); SQUAMOUS EPITHELIAL CELL URINE MOD AMOUNT /hpf (SMALL AMT)
[2022-05-11] MEDS ORDERED: CEFD300C41 PO (18:11)
[2022-05-11] MEDS ORDERED: ONDA4TAB6 PO (18:11)
[2022-05-11] MEDS ORDERED: HYDR-3713 PO (18:11)
[2022-05-11 18:15] VITALS: BP 137/66
== END 2022-05-11 18:38 | disposition home or self-care (01) ==
LOC: EDBD 15:02 → M ED 15:02
DX: K80.50 Calculus of bile duct without cholangitis or cholecystitis without obstruction (principal); N39.0 Urinary tract infection, site not specified; Z79.899 Other long term (current) drug therapy; Z88.0 Allergy status to penicillin; Z88.2 Allergy status to sulfonamides; Z88.8 Allergy status to other drugs, medicaments and biological substances
CPT/HCPCS: 76705; 80048; 80076; 81000; 81015; 82550; 82553; 83690; 84484; 85025; 87086; 93005; 93041; 96374; 96375; 99285; C9113; J2270; J2765

== ENCOUNTER → 2022-05-16 | Outpatient (CLI) | payer OTHER, MEDICARE, MEDICAID ==
[~2022-05-16] MED LIST changes: +CEFD300C41 PO; +HYDR-3713 PO; +PROHANCE 279.3MG/ML 15ML VIAL As Ordered ONE; +PROHANCE 279.3MG/ML 5ML VIAL As Ordered ONE
== END ==
LOC: M RAD 17:31
PROVIDERS: ATTEND Family Medicine Addiction Medicine
DX: M51.26 Other intervertebral disc displacement, lumbar region (principal)
CPT/HCPCS: 72158; A9576

== ENCOUNTER → 2023-02-15 | Outpatient (REF) | payer OTHER, MEDICARE, MEDICAID ==
[~2023-02-15] MED LIST changes: -PROHANCE 279.3MG/ML 15ML VIAL As Ordered ONE; -PROHANCE 279.3MG/ML 5ML VIAL As Ordered ONE
[2023-02-15 14:35] LABS: AMORPHOUS SEDIMENT MODERATE (NEGATIVE); APPEARANCE, URINE TURBID (CLEAR); BACTERIA, URINE AUTO 2+ (NEGATIVE); BILIRUBIN, URINE AUTO NEGATIVE (NEGATIVE); BLOOD, URINE BLOOD NEGATIVE (NEGATIVE); COLOR, URINE YELLOW (YELLOW); GLUCOSE, URINE (UA) AUTO NEGATIVE (NEGATIVE); KETONE, URINE AUTO TRACE mg/dL (NEGATIVE); LEUKOCYTE ESTERASE, URINE AUTO 2+ (NEGATIVE); MUCUS, URINE SMALL (NEGATIVE); NITRITE, URINE AUTO NEGATIVE (NEGATIVE); PROTEIN, URINE AUTO NEGATIVE (NEGATIVE); RBC, URINE AUTO 0 /HPF (0-3); SPECIFIC GRAVITY URINE AUTO 1.031 (1.002-1.035); SQUAMOUS EPITHELIAL CELL UR AU 4 /HPF (0-6); UROBILINOGEN, URINE AUTO 0.2 mg/dL (0.0-2.0); WBC, URINE AUTO 0 /HPF (0-3)
== END ==
LOC: M SMT 13:11
PROVIDERS: ATTEND Physician Assistant
DX: N30.90 Cystitis, unspecified without hematuria (principal)

== ENCOUNTER → 2023-03-08 | Outpatient (CLI) | payer MEDICARE, MEDICAID ==
[2023-03-08 12:05] LABS: HEPATITIS B SURFACE ANTIGEN NEGATIVE (NEGATIVE)
[2023-03-08 12:18] LABS: HIV 1&2 SCREEN NEGATIVE (NEGATIVE)
[2023-03-08 12:26] LABS: HEPATITIS C VIRUS ABY INDEX 0.11 INDEX (<0.8)
[2023-03-08 12:27] LABS: HEPATITIS B CORE ANTIBODY IGM NEGATIVE (NEGATIVE)
== END ==
LOC: M PLALAB 08:39
PROVIDERS: ATTEND Nurse Practitioner Family
DX: R30.0 Dysuria (principal); Z11.3 Encounter for screening for infections with a predominantly sexual mode of transmission

== ENCOUNTER → 2023-03-08 | Outpatient (REF) | payer MEDICARE, MEDICAID | LOC: M PLALAB 09:50 | PROVIDERS: ATTEND Nurse Practitioner Family | DX: R30.0 Dysuria (principal) ==

== ENCOUNTER → 2023-05-04 | Outpatient (REF) | payer MEDICARE, MEDICAID | LOC: M PLALAB 10:06 | PROVIDERS: ATTEND Nurse Practitioner Family | DX: Z11.3 Encounter for screening for infections with a predominantly sexual mode of transmission (principal) ==

== ENCOUNTER → 2023-05-23 | Outpatient (REF) | payer MEDICARE, MEDICAID | LOC: M SFHCWAGY 17:11 | PROVIDERS: ATTEND Nurse Practitioner Family | DX: Z11.3 Encounter for screening for infections with a predominantly sexual mode of transmission (principal); R21 Rash and other nonspecific skin eruption ==

== ENCOUNTER 2023-06-26 10:36 | Emergency (ER) | payer MEDICAID, MEDICARE ==
[~2023-06-26] VITALS: Ht 165.1 cm; Wt 63.6 kg
[2023-06-26 11:03] VITALS: TEMP 98.2
[2023-06-26] MEDS ORDERED: ONDANSETRON 4MG 2ML VIAL IV ONE (12:10)
[2023-06-26] MEDS ORDERED: LORazepam 2 MG/ML 1ML VIAL IV STA (12:10)
[2023-06-26 12:36] VITALS: BP 105/70; O2SAT 99
[2023-06-26 12:44] LABS: BASO % 0.4 % (0.0-1.0); EOS % 0.4 % (0.0-3.0); HEMATOCRIT 37.6 % (36.0-47.0); HEMOGLOBIN 12.6 g/dl (12.0-15.5); LYMPH # 1.2 10^3/uL (1.5-5.0); LYMPH % 23.4 % (24.0-44.0); MEAN CORPUSCULAR HEMOGLOBIN 29.5 pg (27.0-33.0); MEAN CORPUSCULAR HGB CONC 33.5 g/dl (32.0-36.5); MEAN CORPUSCULAR VOLUME 88.1 fl (80.0-96.0); MONO # 0.3 10^3/uL (0.0-0.8); MONO % 6.3 % (2.0-8.0); NEUTROPHILS # 3.6 10^3/uL (1.5-8.5); NEUTROPHILS % 69.3 % (36.0-66.0); PLATELET COUNT, AUTOMATED 196 10^3/uL (150-450); RED BLOOD COUNT 4.27 10^6/uL (4.00-5.40); WHITE BLOOD COUNT 5.2 10^3/uL (4.0-10.0)
[2023-06-26 13:13] LABS: BLOOD UREA NITROGEN 8 MG/DL (9-23); CALCIUM LEVEL 8.7 MG/DL (8.5-10.1); CARBON DIOXIDE LEVEL 29 MMOL/L (20-31); CHLORIDE LEVEL 105 MMOL/L (98-107); CREATININE FOR GFR 0.67 MG/DL (0.55-1.30); GLOMERULAR FILTRATION RATE > 60.0 (>60); GLUCOSE, FASTING 102 MG/DL (60-100); SODIUM LEVEL 139 MMOL/L (136-145)
[2023-06-26 13:20] LABS: RSV AMPLIFICATION NEGATIVE (NEGATIVE)
== END 2023-06-26 13:56 | disposition home or self-care (01) ==
LOC: M ED 10:36
DX: R06.02 Shortness of breath (principal); Z88.0 Allergy status to penicillin; Z88.8 Allergy status to other drugs, medicaments and biological substances; Z79.899 Other long term (current) drug therapy
CPT/HCPCS: 80048; 84702; 85025; 87631; 96374; 96375; 99284; J2060; J2405

== ENCOUNTER → 2023-10-03 | Outpatient (REF) | payer MEDICARE, MEDICAID ==
[~2023-10-03] MED LIST changes: +CEFD1CAP9 PO; -CEFD300C41 PO
== END ==
LOC: M SFHCWAGY 15:18
PROVIDERS: ATTEND Nurse Practitioner Family
DX: Z11.3 Encounter for screening for infections with a predominantly sexual mode of transmission (principal)

== ENCOUNTER 2024-04-28 18:09 | Observation (INO) | payer MEDICARE, MEDICAID ==
[~2024-04-28 18:09] MED LIST changes: +ONDA-282 PO; -ONDA4TAB6 PO
[2024-04-28 19:24] LABS: BASO % 0.3 % (0.0-1.0); EOS % 0.2 % (0.0-3.0); HEMATOCRIT 33.1 % (36.0-47.0); HEMOGLOBIN 11.6 g/dl (12.0-15.5); LYMPH # 1.5 10^3/uL (1.5-5.0); LYMPH % 13.6 % (24.0-44.0); MEAN CORPUSCULAR HEMOGLOBIN 30.5 pg (27.0-33.0); MEAN CORPUSCULAR VOLUME 87.1 fl (80.0-96.0); MONO # 0.6 10^3/uL (0.0-0.8); MONO % 5.9 % (2.0-8.0); NEUTROPHILS # 8.7 10^3/uL (1.5-8.5); NEUTROPHILS % 79.5 % (36.0-66.0); PLATELET COUNT, AUTOMATED 232 10^3/uL (150-450); WHITE BLOOD COUNT 10.9 10^3/uL (4.0-10.0)
[2024-04-28 19:45] LABS: LIPASE 25 U/L (12-53)
[2024-04-28 19:47] LABS: ALBUMIN 3.7 G/DL (3.2-5.2); ALKALINE PHOSPHATASE 41 U/L (46-116); ALT/SGPT 14 U/L (7.0-40); AST/SGOT 10 U/L (<34); BILIRUBIN,DIRECT 0.1 MG/DL (<0.4); BILIRUBIN,TOTAL 0.4 MG/DL (0.3-1.2); BLOOD UREA NITROGEN 13 MG/DL (9-23); CALCIUM LEVEL 8.6 MG/DL (8.5-10.1); CARBON DIOXIDE LEVEL 27 MMOL/L (20-31); CHLORIDE LEVEL 105 MMOL/L (98-107); CREATININE FOR GFR 0.63 MG/DL (0.55-1.30); GLOMERULAR FILTRATION RATE > 60.0 (>60); GLUCOSE, FASTING 139 MG/DL (60-100); SODIUM LEVEL 138 MMOL/L (136-145); TOTAL PROTEIN 6.4 G/DL (5.7-8.2)
[2024-04-28] MEDS: ONDANSETRON 4MG 2ML VIAL IV ONE (19:47)
[2024-04-28] MEDS: NS 1,000 ML IV ONE ×2 (19:47→22:21)
[2024-04-28] MEDS: KETOROLAC 30 MG/ML 1ML VIAL IV ONE (19:49)
[2024-04-28 20:25] LABS: HCG, SERUM QUALITATIVE POSITIVE (NEGATIVE)
[2024-04-28] MEDS ORDERED: ROCURONIUM BROMIDE 50MG/5ML VIAL As Ordered ONE (21:46)
[2024-04-28] MEDS ORDERED: LIDOCAINE 2% 100MG/5ML SDV (FOR ANES.) As Ordered ONE (21:46)
[2024-04-28] MEDS ORDERED: propofoL 200 MG/20 ML VIAL As Ordered ONE (21:46)
[2024-04-28] MEDS ORDERED: ONDANSETRON 4MG 2ML VIAL As Ordered ONE (21:46)
[2024-04-28] MEDS ORDERED: SUGAMMADEX SODIUM 500 MG/5 ML VIAL (BRIDION) As Ordered ONE (21:47)
[2024-04-28] MEDS ORDERED: fentaNYL 100 MCG/2 ML INJECTION As Ordered ONE (21:47)
[2024-04-28] MEDS ORDERED: MIDAZOLAM INJ 2MG/2ML VIAL As Ordered ONE (21:47)
[2024-04-28] MEDS: SILVER NITRATE APPLICATOR (1 = QTY 10) As Ordered ONE (21:54)
[2024-04-28] MEDS: BUTORPHANOL 2 MG/ML 1ML VIAL IV ONE (21:57)
[2024-04-28] MEDS ORDERED: ACETAMINOPHEN 1000MG 100ML IV BAG As Ordered ONE (23:56)
[2024-04-29] VITALS (9 sets, daily range): BP systolic 92–108; BP diastolic 48–56; TEMP 97.3–99.1; O2SAT 98–99
[2024-04-29] MEDS ORDERED: KETOROLAC 60MG 2ML VIAL As Ordered ONE (00:55)
[2024-04-29] MEDS ORDERED: ONDANSETRON 4MG 2ML VIAL IV PRN (01:00)
[2024-04-29] MEDS: oxyCODONE 5MG TAB PO PRN (01:27)
[2024-04-29] MEDS: HYDROMORPHONE HCL 0.5 MG/ 0.5 ML SYRINGE IV PRN (01:49)
[2024-04-29] MEDS ORDERED: HOME MED LIST COMPLETE! XX SCH (01:50)
[2024-04-29] MEDS ORDERED: OXYC1TAB23 PO (02:15)
[2024-04-29] MEDS ORDERED: PERCOCET 5MG/325MG TAB PO PRN (02:15)
[2024-04-29] MEDS ORDERED: COLA100C5 PO (02:17)
[2024-04-29] MEDS ORDERED: IBUP80TA PO (02:17)
[2024-04-29] MEDS ORDERED: ONDA-282 PO (02:17)
[2024-04-29] MEDS: fentaNYL 100 MCG/2 ML INJECTION IV PRN (02:31)
[2024-04-29] MEDS: LR 1,000 ML IV SCH ×2 (04:00→04:51)
[2024-04-29] MEDS: SIMETHICONE 80MG CHEW TAB PO PRN (04:50)
[2024-04-29] MEDS: DOCUSATE SODIUM 100MG CAPSULE PO SCH (04:50)
[2024-04-29] MEDS: DOCUSATE SODIUM 100MG CAPSULE PO ONE (04:50)
[2024-04-29] MEDS: PERCOCET 5MG/325MG TAB PO PRN (06:08)
[2024-04-29 07:24] LABS: BASO % 0.1 % (0.0-1.0); HEMATOCRIT 30.3 % (36.0-47.0); HEMOGLOBIN 10.8 g/dl (12.0-15.5); LYMPH # 0.7 10^3/uL (1.5-5.0); LYMPH % 7.5 % (24.0-44.0); MEAN CORPUSCULAR HGB CONC 35.6 g/dl (32.0-36.5); MEAN CORPUSCULAR VOLUME 87.1 fl (80.0-96.0); MONO # 0.4 10^3/uL (0.0-0.8); MONO % 4.6 % (2.0-8.0); NEUTROPHILS % 87.3 % (36.0-66.0); PLATELET COUNT, AUTOMATED 168 10^3/uL (150-450); RED BLOOD COUNT 3.48 10^6/uL (4.00-5.40); WHITE BLOOD COUNT 9.2 10^3/uL (4.0-10.0)
[2024-04-29] MEDS: KETOROLAC 30 MG/ML 1ML VIAL IV SCH (07:59)
[2024-04-29] MEDS: MORPHINE 4 MG/ML 1ML VIAL IV PRN ×2 (08:32→15:44)
[2024-04-29] MEDS: MOM 30ML SUSPENSION UDC PO PRN (15:43)
[2024-04-30] VITALS (11 sets, daily range): BP systolic 92–109; BP diastolic 50–57; TEMP 97.9–99.4; O2SAT 97–100
[2024-04-30] MEDS: IBUPROFEN 800 MG TAB PO SCH (04:27)
[2024-04-30 06:38] LABS: HEMATOCRIT 25.8 % (36.0-47.0); HEMOGLOBIN 8.9 g/dl (12.0-15.5); MEAN CORPUSCULAR HGB CONC 34.5 g/dl (32.0-36.5); MEAN CORPUSCULAR VOLUME 89.9 fl (80.0-96.0); PLATELET COUNT, AUTOMATED 136 10^3/uL (150-450); RED BLOOD COUNT 2.87 10^6/uL (4.00-5.40); WHITE BLOOD COUNT 5.3 10^3/uL (4.0-10.0)
[2024-04-30] MEDS: ONDANSETRON 4MG 2ML VIAL IV PRN (12:41)
[2024-04-30] MEDS ORDERED: MOM 30ML SUSPENSION UDC PO SCH (13:00)
[2024-04-30] MEDS: MOM 30ML SUSPENSION UDC PO SCH (14:32)
[2024-04-30] MEDS: oxyCODONE 5MG TAB PO PRN (16:47)
[2024-05-01 04:00] VITALS: BP 95/52; TEMP 98.3; O2SAT 98
[2024-05-01 09:11] LABS: HEMATOCRIT 36.8 % (36.0-47.0); MEAN CORPUSCULAR HEMOGLOBIN 30.7 pg (27.0-33.0); MEAN CORPUSCULAR HGB CONC 34.2 g/dl (32.0-36.5); MEAN CORPUSCULAR VOLUME 89.5 fl (80.0-96.0); PLATELET COUNT, AUTOMATED 177 10^3/uL (150-450); RED BLOOD COUNT 4.11 10^6/uL (4.00-5.40)
[2024-05-01 09:21] LABS: HEMOGLOBIN 12.6 g/dl (12.0-15.5)
[2024-05-01 10:00] VITALS: BP 102/44; TEMP 98.3; O2SAT 97
[2024-05-01] MEDS ORDERED: ACETAMINOPHEN 500 MG TAB PO PRN (10:00)
[2024-05-01 13:45] VITALS: BP 95/45
[2024-05-01] MEDS: ONDANSETRON 4MG ORAL DISINTEGRATING TAB PO PRN (14:07)
[2024-05-01] MEDS ORDERED: NORCO, ANEXSIA 5/325MG TABLET (HYDROcodone/ACETAMINOPHEN) PO PRN (15:20)
[2024-05-01 17:45] VITALS: BP 91/53; TEMP 97.2; O2SAT 100
[2024-05-01] MEDS ORDERED: HYDR-3713 PO (18:28)
== END 2024-05-01 19:00 | disposition home or self-care (01) ==
LOC: M ED 18:09 → M OBS 18:10 → INTOOBSV 04-29 02:29 → UNDOADMOB 04-29 02:29 → UNDODISOB 05-01 19:00
PROVIDERS: ADMIT Obstetrics & Gynecology; ATTEND Obstetrics & Gynecology
DX: O00.101 Right tubal pregnancy without intrauterine pregnancy (principal); K66.1 Hemoperitoneum; Z88.1 Allergy status to other antibiotic agents; Z88.0 Allergy status to penicillin
CPT/HCPCS: 36415; 58558; 59151; 76801; 76817; 80048; 80076; 83690; 84702; 84703; 85025; 85027; 86850; 86900; 86901; 86920; 88305; 93976; 96374; 96375; 96376; 99284; G0378; J0131; J0595; J0665; J1100; J1170; J1885; J2250; J2405; J3010; P9016

== ENCOUNTER → 2024-05-16 | Outpatient (CLI) | payer MEDICARE, MEDICAID ==
[~2024-05-16] MED LIST changes: +COLA100C5 PO; +IBUP80TA PO; +OXYC1TAB23 PO
[2024-05-16 19:13] LABS: HEMATOCRIT 35.7 % (36.0-47.0); MEAN CORPUSCULAR HGB CONC 33.6 g/dl (32.0-36.5); MEAN CORPUSCULAR VOLUME 89.3 fl (80.0-96.0); PLATELET COUNT, AUTOMATED 223 10^3/uL (150-450)
== END ==
LOC: M PLALAB 15:55
PROVIDERS: ATTEND Obstetrics & Gynecology
DX: Z48.816 Encounter for surgical aftercare following surgery on the genitourinary system (principal)

== ENCOUNTER → 2024-05-23 | Outpatient (CLI) | payer MEDICARE, MEDICAID ==
[2024-05-23 18:08] LABS: HEMATOCRIT 31.4 % (36.0-47.0); HEMOGLOBIN 10.5 g/dl (12.0-15.5); MEAN CORPUSCULAR HEMOGLOBIN 30.1 pg (27.0-33.0); MEAN CORPUSCULAR HGB CONC 33.4 g/dl (32.0-36.5); PLATELET COUNT, AUTOMATED 192 10^3/uL (150-450); RED BLOOD COUNT 3.49 10^6/uL (4.00-5.40); WHITE BLOOD COUNT 4.9 10^3/uL (4.0-10.0)
== END ==
LOC: M PLALAB 16:12
PROVIDERS: ATTEND Obstetrics & Gynecology
DX: N93.9 Abnormal uterine and vaginal bleeding, unspecified (principal)

== ENCOUNTER → 2024-07-22 | Outpatient (REF) | payer MEDICARE, MEDICAID ==
[2024-07-22 16:29] LABS: Trichomonas vaginalis (AMP) NOT DETECTED (NEGATIVE)
[2024-07-22 16:52] LABS: GC DNA AMPLIFICATION NEGATIVE (NEGATIVE)
== END ==
LOC: M SFHCWAGY 13:31
PROVIDERS: ATTEND Nurse Practitioner Family
DX: N93.0 Postcoital and contact bleeding (principal); Z11.3 Encounter for screening for infections with a predominantly sexual mode of transmission; Z72.89 Other problems related to lifestyle

== ENCOUNTER → 2024-11-20 | Outpatient (CLI) | payer MEDICARE, MEDICAID | LOC: M RAD 10:21 | PROVIDERS: ATTEND Family Medicine Addiction Medicine | DX: R10.13 Epigastric pain (principal); K80.20 Calculus of gallbladder without cholecystitis without obstruction ==

== ENCOUNTER → 2024-11-25 | Outpatient (CLI) | payer MEDICARE, MEDICAID ==
[~2024-11-25] MED LIST changes: +ISOVUE-370 76% 100ML VIAL ONE
== END ==
LOC: M PLAIMG 13:58
PROVIDERS: ATTEND Family Medicine Addiction Medicine
DX: R10.11 Right upper quadrant pain (principal)
CPT/HCPCS: 74177; Q9967

== ENCOUNTER → 2024-11-28 | Outpatient (REF) | payer MEDICARE, MEDICAID ==
[~2024-11-28] MED LIST changes: -ISOVUE-370 76% 100ML VIAL ONE
[2024-11-28 19:26] LABS: BASO % 0.5 % (0.0-1.0); EOS # 0.1 10^3/uL (0.0-0.5); EOS % 2.1 % (0.0-3.0); HEMATOCRIT 41.3 % (36.0-47.0); HEMOGLOBIN 14.2 g/dl (12.0-15.5); LYMPH # 1.7 10^3/uL (1.5-5.0); LYMPH % 27.9 % (24.0-44.0); MEAN CORPUSCULAR HEMOGLOBIN 30.4 pg (27.0-33.0); MEAN CORPUSCULAR HGB CONC 34.4 g/dl (32.0-36.5); MEAN CORPUSCULAR VOLUME 88.4 fl (80.0-96.0); MONO # 0.5 10^3/uL (0.0-0.8); MONO % 8.5 % (2.0-8.0); NEUTROPHILS # 3.7 10^3/uL (1.5-8.5); NEUTROPHILS % 60.8 % (36.0-66.0); PLATELET COUNT, AUTOMATED 240 10^3/uL (150-450); RED BLOOD COUNT 4.67 10^6/uL (4.00-5.40); WHITE BLOOD COUNT 6.1 10^3/uL (4.0-10.0)
[2024-11-28 20:07] LABS: ALBUMIN 4.2 G/DL (3.2-5.2); ALKALINE PHOSPHATASE 47 U/L (35-104); ALT/SGPT 32 U/L (7.0-40); AMYLASE 96 U/L (30-118); AST/SGOT 19 U/L (<34); BILIRUBIN,TOTAL 0.8 MG/DL (0.3-1.2); BLOOD UREA NITROGEN 10 MG/DL (9-23); CALCIUM LEVEL 9.2 MG/DL (8.5-10.1); CARBON DIOXIDE LEVEL 25 MMOL/L (20-31); CHLORIDE LEVEL 106 MMOL/L (98-107); CREATININE FOR GFR 0.71 MG/DL (0.55-1.30); GLOMERULAR FILTRATION RATE > 60.0 (>60); GLUCOSE, FASTING 82 MG/DL (60-100); LIPASE 42 U/L (12-53); POTASSIUM SERUM 4.3 MMOL/L (3.5-5.1); SODIUM LEVEL 143 MMOL/L (136-145); TOTAL PROTEIN 7.1 G/DL (5.7-8.2)
== END ==
LOC: M LAB REF 17:07
PROVIDERS: ATTEND Family Medicine Addiction Medicine
DX: R10.11 Right upper quadrant pain (principal)

== ENCOUNTER → 2025-06-26 | Outpatient (REF) | payer MEDICARE, MEDICAID ==
[~2025-06-26] MED LIST changes: +FAMO10TA50 PO; +LEXA1TAB PO; +SUCR1TAB56 PO; +TRAZ-252 PO
[2025-06-26 17:06] LABS: URINE PREG TEST NEGATIVE (NEGATIVE)
[2025-06-26 17:33] LABS: APPEARANCE, URINE HAZY (CLEAR); BACTERIA, URINE AUTO 2+ (NEGATIVE); BILIRUBIN, URINE AUTO NEGATIVE (NEGATIVE); BLOOD, URINE BLOOD 1+ (NEGATIVE); GLUCOSE, URINE (UA) AUTO NEGATIVE (NEGATIVE); KETONE, URINE AUTO NEGATIVE (NEGATIVE); LEUKOCYTE ESTERASE, URINE AUTO 1+ (NEGATIVE); NITRITE, URINE AUTO POSITIVE (NEGATIVE); PROTEIN, URINE AUTO 1+ mg/dL (NEGATIVE); RBC, URINE AUTO 0 /HPF (0-3); SPECIFIC GRAVITY URINE AUTO 1.020 (1.002-1.035); SQUAMOUS EPITHELIAL CELL UR AU 2 /HPF (0-6); UROBILINOGEN, URINE AUTO 0.2 mg/dL (0.0-2.0); WBC, URINE AUTO 132 /HPF (0-3)
[2025-06-26 18:45] LABS: Trichomonas vaginalis (AMP) NOT DETECTED (NEGATIVE)
[2025-06-26 19:09] LABS: GC DNA AMPLIFICATION NEGATIVE (NEGATIVE)
== END ==
LOC: M LAB REF 16:40
PROVIDERS: ATTEND Physician Assistant
DX: N39.0 Urinary tract infection, site not specified (principal); Z11.3 Encounter for screening for infections with a predominantly sexual mode of transmission; Z72.89 Other problems related to lifestyle

== ENCOUNTER → 2025-08-18 | Outpatient (REF) | payer MEDICAID, MEDICARE ==
[2025-08-18 22:45] LABS: APPEARANCE, URINE MANUAL HAZY (CLEAR); COLOR, URINE MANUAL YELLOW (YELLOW)
[2025-08-18 22:46] LABS: BILIRUBIN, URINE MANUAL NEGATIVE (NEGATIVE); GLUCOSE, URINE (UA) MANUAL NEGATIVE (NEGATIVE); KETONE, URINE MANUAL NEGATIVE (NEGATIVE); NITRITE, URINE MANUAL NEGATIVE (NEGATIVE); PH,URINE MAN 6.5 UNITS (5.0 - 7.0); PROTEIN, URINE MANUAL NEGATIVE (NEGATIVE); SPECIFIC GRAVITY,URINE MANUAL 1.020 (1.002-1.035); UROBILINOGEN, URINE MANUAL NORMAL (NORMAL)
[2025-08-18 22:47] LABS: BLOOD URINE MANUAL POSITIVE (NEGATIVE); LEUKOCYTE ESTERASE, URINE MAN TRACE (NEGATIVE)
[2025-08-18 22:56] LABS: RBC, URINE 0-1 /hpf (0-3); SQUAMOUS EPITHELIAL CELL URINE SMALL AMOUNT /hpf (SMALL AMT)
[2025-08-18 22:57] LABS: BACTERIA, URINE LARGE AMOUNT; HYALINE CAST, URINE NONE SEEN /lpf (0-1)
[2025-08-18 23:41] LABS: Trichomonas vaginalis (AMP) NOT DETECTED (NEGATIVE)
[2025-08-19 00:05] LABS: GC DNA AMPLIFICATION NEGATIVE (NEGATIVE)
== END ==
LOC: M LAB REF 22:21
PROVIDERS: ATTEND Physician Assistant Medical
DX: N39.0 Urinary tract infection, site not specified (principal)

== ENCOUNTER → 2025-09-18 | Outpatient (REF) | payer MEDICARE, MEDICAID ==
[2025-09-18 21:41] LABS: APPEARANCE, URINE HAZY (CLEAR); BACTERIA, URINE AUTO NEGATIVE (NEGATIVE); BILIRUBIN, URINE AUTO NEGATIVE (NEGATIVE); BLOOD, URINE BLOOD 2+ (NEGATIVE); GLUCOSE, URINE (UA) AUTO NEGATIVE (NEGATIVE); KETONE, URINE AUTO NEGATIVE (NEGATIVE); LEUKOCYTE ESTERASE, URINE AUTO NEGATIVE (NEGATIVE); MUCUS, URINE SMALL (NEGATIVE); NITRITE, URINE AUTO NEGATIVE (NEGATIVE); PROTEIN, URINE AUTO NEGATIVE (NEGATIVE); RBC, URINE AUTO 6 /HPF (0-3); SPECIFIC GRAVITY URINE AUTO 1.027 (1.002-1.035); SQUAMOUS EPITHELIAL CELL UR AU 14 /HPF (0-6); UROBILINOGEN, URINE AUTO 0.2 mg/dL (0.0-2.0); WBC, URINE AUTO 2 /HPF (0-3)
[2025-09-18 22:52] LABS: Trichomonas vaginalis (AMP) NOT DETECTED (NEGATIVE)
[2025-09-18 23:17] LABS: GC DNA AMPLIFICATION NEGATIVE (NEGATIVE)
== END ==
LOC: M LAB REF 21:15
PROVIDERS: ATTEND Physician Assistant
DX: N89.8 Other specified noninflammatory disorders of vagina (principal); Z20.2 Contact with and (suspected) exposure to infections with a predominantly sexual mode of transmission; Z11.3 Encounter for screening for infections with a predominantly sexual mode of transmission; Z72.89 Other problems related to lifestyle; Z79.899 Other long term (current) drug therapy